=== PATIENT | male | born 1945 | race Caucasian/White ===

== ENCOUNTER 2020-07-24 14:47 | Observation (INO) | payer MEDICARE, SELFPAY ==
[2020-07-24] VITALS (10 sets, daily range): BP systolic 133–173; BP diastolic 67–110; PULSE 67–94; RESP 12–20; TEMP 36.3–36.5; O2SAT 98–100
--- NOTE | ~2020-07-24 | CT_ITS ---
EXAMINATION: CT brain wo con DATE: 07/24/2020 15:50 INDICATION: Syncope TECHNIQUE: Computed tomography (CT) of the head was performed without intravenous contrast. The dose- length product was 605.33 mGy-cm. Automated exposure control and iterative reconstruction technique w ere employed. COMPARISON: None FINDINGS: Mild generalized atrophy. There are scattered severe periventricular and subcortical white matter changes, most likely related to small vessel ischemic disease (microangiopathy). No ventriculo megaly or midline shift. There is intracranial atherosclerosis. No ventriculomegaly or midline shift. Paranasal sinuses and mastoids are pneumatized. No depressed skull fractures. No acute intracranial hemorrhage, infarction, mass or mass effect. IMPRESSION: 1. No acute intracranial abnormality. 2: Chronic age-related findings. Reviewed, dictated and finalized at location A.
--- NOTE | ~2020-07-24 | US_ITS ---
EXAMINATION: US carotid duplex BI DATE: 07/25/2020 11:34 INDICATION: Syncope. TECHNIQUE: Grayscale, color Doppler, and pulsed Doppler images of the cervical carotid arteries were obtained. The degree of vessel stenosis is placed in one of the following categories: normal, <50%, 5 0-69%, >=70% but less than near-occlusion, near-occlusion, or total occlusion. Note that percent sten osis relative to normal distal artery lumen diameter is indirectly measured from velocity measurement s as described by Alex, et al. Radiology 2003; 229:[id number]. COMPARISON: None. FINDINGS: RIGHT: The right common carotid artery (CCA) peak systolic velocity (PSV) is 74 cm/s. The right internal car otid artery (ICA) PSV is 95 cm/s. The right ICA end-diastolic velocity (EDV) is 21 cm/s. The right IC A/CCA PSV ratio is 1.3. Grayscale and color Doppler images yield an estimate of <50% diameter reducti on from plaque in the ICA. There is antegrade flow in the right vertebral artery. LEFT: The left CCA PSV is 118 cm/s. The left ICA PSV is 103 cm/s. The left ICA EDV is 34 cm/s. The left ICA /CCA PSV ratio is 0.9. Grayscale and color Doppler images yield an estimate of <50% diameter reductio n from plaque in the ICA. There is antegrade flow in the left vertebral artery. IMPRESSION: 1. <50% stenosis in the right internal carotid artery. 2. <50% stenosis in the left internal carotid artery. Reviewed, dictated and finalized at location A.
--- NOTE | 2020-07-24 14:56 | ECG_ITS ---
Measurements Intervals [place] Rate: 80 P: -30 AL: 152 QRS: -85 QRSD: 143 T: 61 QT: 422 QTc: 489 Interpretive Statements SINUS RHYTHM RIGHT BUNDLE BRANCH BLOCK LEFT ANTERIOR FASCICULAR BLOCK CANNOT RULE OUT SEPTAL INFARCT, AGE INDETERMINATE BASELINE WANDER- AVL, V4 ABNORMAL ECG Electronically Signed On 07-24-2020 15:11:50 CDT by Mathieu Soares D.O.
--- NOTE | 2020-07-24 15:29 | ED.SYNCOPE ---
HPI - Syncope General Chief Complaint: Syncope Stated Complaint: UNRESPONSIVE EPISODE Time Seen by Provider: 07/24/20 15:01 Source: patient Mode of arrival: ambulatory Limitations: no limitations History of Present Illness HPI narrative: Patient is a 75-year-old male brought in by EMS after having an unresponsive episode while at [address]. According to the patient had a sudden onset of generalized weakness and became unresponsive, described as he was awake but he was not talking or responding for a few minutes. Upon arrival to the emergency room symptoms resolved. Patient states that he feels good and has no complaints at this time. Patient denies any symptoms prior to the episode. Patient denies any headache, dizziness, speech or visual disturbance, focal weakness or numbness, chest pain, shortness of breath abdominal pain, nausea, vomiting, diarrhea, fever or chills. Related Data Home Medications Medication Instructions Recorded Confirmed ferrous sulfate 325 mg (65 mg 325 mg PO DAILY 01/22/20 01/22/20 iron) tablet oxycodone-acetaminophen 5 mg-325 1 tablet PO Q6H PRN 01/22/20 01/22/20 mg tablet Allergies Allergy/AdvReac Type Severity Reaction Status Date / Time No Known Allergies Allergy Unverified 01/22/20 09:13 Review of Systems Review of Systems: All systems reviewed & are unremarkable except as noted in HPI and below Constitutional: Constitutional: Denies body ache(s), Denies chills, Denies excessive sweating, Denies fatigue, Denies fever(s), Denies headache(s), Denies lethargy, Denies malaise, Denies weakness and Denies weight loss Eyes: Eyes: Denies blurry vision, Denies change in vision and Denies loss of vision ENT: Denies dizziness, Denies ear discharge, Denies headache(s), Denies lip swelling, Denies epistaxis, Denies nasal congestion, Denies neck pain, Denies throat swelling and Denies tongue swelling Cardiovascular: Cardiovascular: Denies chest pain, Denies chest pain at rest, Denies chest pain with activity, Denies diaphoresis, Denies rapid heart rate, Denies edema, Denies irregular heart rhythm, Denies lightheadedness, Denies palpitations, Denies dyspnea and Denies dyspnea on exertion Respiratory: Respiratory: Denies chest congestion, Denies cough, Denies hemoptysis, Denies dyspnea and Denies dyspnea on exertion Gastrointestinal: Gastrointestinal: Denies abdominal pain, Denies melena, Denies hematochezia, Denies diarrhea, Denies nausea, Denies vomiting and Denies hematemesis Musculoskeletal: Musculoskeletal: Denies abnormal gait, Denies deformity, Denies joint swelling, Denies limited range of motion, Denies neck pain and Denies numbness Neurologic: Denies Abnormal speech present, Denies abnormal gait, Denies confusion, Denies dizziness, Denies headache(s), Denies focal weakness, Denies loss of vision, Denies numbness, Denies Other visual disturbances, Denies Sensory deficit (Neuro) and Denies weakness Psychiatric: Psychiatric: Denies confusion, Denies depression, Denies auditory hallucinations, Denies homicidal ideation and Denies suicidal ideation Endocrine: Endocrine: Denies cold intolerance, Denies excessive sweating, Denies fatigue, Denies heat intolerance and Denies palpitations Hematologic/Lymphatic: Hematologic/Lymphatic: Denies easy bleeding and Denies easy bruising Allergic/Immunologic: Allergic/Immunologic: Denies lip swelling, Denies throat swelling and Denies tongue swelling PMFSH Past Medical History Medical History Diabetes Surgical History Surgical History History of gastric bypass (~2011) History of open heart surgery (~11/2015) History of repair of right rotator cuff Social History Social History Smoking status: Never smoker Alcohol intake: never Gender identity (if verbalized by the patient):
[2020-07-24 16:11] LABS: Basophils Absolute Auto 0.1 K/mm3 (0.0-0.1); Basophils Percent Auto 0.5 % (0.2-1.2); Eosinophils Absolute Auto 0.1 K/mm3 (0-0.3); Eosinophils Percent Auto 0.5 % (0-4.4); Hematocrit 36.4 % (42.0-52.0); Hemoglobin 10.9 g/dL (14.0-18.0); Immature Granulocyte Absolute 0.05 K/mm3 (0.00-0.031); Immature Granulocyte Percent A 0.5 % (0-0.5); Lymphocytes Absolute Auto 0.82 K/mm3 (0.9-3.2); Mean Corpuscular HGB Conc 29.9 g/dl (32-36); Mean Corpuscular Hemoglobin 25.6 pg (26-34); Mean Corpuscular Volume 85.6 fl (80-100); Mean Platelet Volume 9.5 fl (7.4-10.4); Monocytes Absolute Auto 0.6 K/mm3 (0.1-0.6); Monocytes Percent Auto 5.4 % (2.6-8.5); Neutrophils Absolute Auto 8.8 K/mm3 (1.3-6.7); Neutrophils Percent Auto 85.1 % (45.5-73.1); Platelet Count Result 244 k/mm3 (150-375); Red Blood Count 4.25 M/mm3 (4.6-6.20); Red Cell Distribution Width 17.2 % (11.5-14.5); White Blood Count 10.3 K/mm3 (4.5-10.0)
--- NOTE | 2020-07-24 16:15 | PC.NURSE ---
Approx 900ml of IVFs given in ED.
[2020-07-24 16:20] LABS: Anion Gap 5 mmol/L (8-16); Blood Urea Nitrogen 28 mg/dL (9-20); Calcium 8.4 mg/dL (8.4-10.2); Carbon Dioxide 27 mmol/L (22-30); Chloride 109 mmol/L (98-107); Estimated CRCL calculation 52 ml/min; Estimated Glomerular Filt Rate 49; Glucose 167 mg/dL (75-110); Potassium 5.7 mmol/L (3.4-5.0); Sodium 141 mmol/L (137-145)
[2020-07-24 16:24] LABS: Platelet Estimate Adequate (Adequate)
[2020-07-24 16:25] LABS: Anisocytosis 2+ (NORMAL); Hypochromasia 1+ (NORMAL)
[2020-07-24 16:32] LABS: Troponin I < 0.012 ng/mL (0.000-0.034)
--- NOTE | 2020-07-24 17:15 | PM.IMHP ---
H&P: HPI History of Present Illness Date/Time: 07/24/20 17:45 Chief Complaint: Syncope. Narrative: This is a pleasant 75-year-old male status post 2 vessel bypass and aortic valve replacement in 2015, chronic anemia, untreated obstructive sleep apnea, type 2 diabetes mellitus no longer on medication after significant weight loss, and peripheral neuropathy who presented to the emergency department earlier today via EMS from [place] local shopping [place] for evaluation after a syncopal episode. The patient begins his story by saying that he has felt ?like my tank has run out of gas? since his bypass and valve replacement in November 2015 although he has some days where he feels good with a lot of energy but most days he feels tired and worn out. Over the past several days his has noticed that he seems more fatigued than usual, and in fact she thinks he has been stumbling somewhat when walking. Today they went out and about running errands and at several the stores his noticed that he ?seem to be walking slow and was almost dragging himself along the cart due to fatigue.? At their final destination he decided to stay in the car as he was so worn out. When the returned to the car he got out and helped her load water bottles into the trunk. At that time he began to feel extremely weak and lightheaded but was unable to make it back into the car. He slumped down onto the ground where he sat for a few seconds before his head fell forward and he became unresponsive for several minutes. A registered nurse was nearby and she reported to EMS on their arrival that the patient had a thready pulse and was with shallow respirations. I do not believe that his glucose was checked at the scene. He came to in the ambulance and he has been alert and oriented since that time. There was no mention of seizure-like activity. Vital signs have been stable in the emergency department and in fact his blood pressures have been running a bit high although he seems a bit anxious. He thinks he has been eating and drinking as per usual however his does not think he stays hydrated enough, telling me that he spent 4 to 5 hours outside yesterday afternoon on a riding lawnmower without 1 drink of water. He has had gastric bypass surgery and his stomach only holds a small amount thus he did not drink much after being outside all day. He denies chest pain, pleuritic pain, shortness of breath, and palpitations. No orthopnea, PND, or lower extremity edema. However does note that he has been unable to use his CPAP for years and she frequently witnesses apneic episodes. He denies nausea, vomiting, and sweats. No recent change in medications. He denies focal weakness. No acute auditory or visual changes. No vertigo. Review of Systems Review of Systems: Narrative: Twelve systems were reviewed with pertinent positives and negatives as per HPI. No fever, chills, or sweats. He denies recent cold and flu symptoms. No exposure to those positive for COVID-19. He lost about 150 pounds after his gastric bypass nearly a decade ago. If he eats too much he will vomit. He denies nausea and recent vomiting. No diarrhea or constipation. No significant GERD symptoms. He denies blood in the stools. He is prescribed oxycodone for severe neuropathy in his legs and feet but he does not take that daily. He denies NSAID use. No dysuria. He has not noticed a decrease in urine output. No known history of kidney disease. He has not had any recent change in medications. Currently having issues with his left shoulder related to rotator cuff repair, followed by Dr. Rosales. Except as documented, all other systems were reviewed and are negative. [facility] Past Medical History Medical History (Updated 07/24/20 @ 21:51 by Basilia Mcfarland PA-C) Coronary artery disease History of 2 vessel bypass at the time of aortic valve replacement in 2016 at [facility]. Iron deficiency anemia Started
[2020-07-24] MEDS: SODIUM POLYSTYRENE SULFONONATE 15 GM/60 ML BTL PO (18:30)
[2020-07-24 18:33] LABS: Glucose Point of Care 124 mg/dl (65-105)
[2020-07-24] MEDS: LACTATED RINGERS 1,000 ML 999 ML IV CONT ×2 (18:42)
--- NOTE | 2020-07-24 21:11 | ADMGEN ---
This patient, Khang Barber, was admitted to Medical Room [facility]- at 2020. Patient/family oriented to hospital policies and general routines including ID bracelet, bed and alarms, visiting hours, pain management, procedures, bathroom and other care routines, personal items, smoking policy, room service/diet, and visiting hours. Information on how to activate the Rapid Response Team has been discussed. Patient/Family are encouraged to report perceived risks to care and to ask questions if they do not understand what they are told or what they should do.
[2020-07-24 21:13] LABS: Anion Gap 6 mmol/L (8-16); Blood Urea Nitrogen 31 mg/dL (9-20); Calcium 8.2 mg/dL (8.4-10.2); Carbon Dioxide 27 mmol/L (22-30); Chloride 108 mmol/L (98-107); Estimated CRCL calculation 55 ml/min; Estimated Glomerular Filt Rate 54; Glucose 127 mg/dL (75-110); Potassium 4.6 mmol/L (3.4-5.0); Sodium 141 mmol/L (137-145)
[2020-07-24 22:18] LABS: Alanine Aminotransferase 13 U/L (4-50); Albumin Level 3.3 g/dL (3.5-5.1); Alkaline Phosphatase 58 U/L (38-126); Aspartate Amino Transferase 22 U/L (17-59); Bilirubin,Total 0.5 mg/dL (0.2-1.3); Creatine Kinase 80 U/L (55-170); Magnesium 1.8 mg/dL (1.6-2.3)
[2020-07-24] MEDS: oxyCODONE/ACETAMINOPHEN (*CRX) 5-325 MG TABLET 1 TABLET PO (22:36)
[2020-07-24] MEDS: oxyCODONE HCL (*CRX) 2.5 MG TAB IR PO (22:36)
[2020-07-25] VITALS (10 sets, daily range): BP systolic 132–164; BP diastolic 60–78; PULSE 68–85; RESP 16–18; TEMP 36.2–36.6; O2SAT 94–100
[2020-07-25 06:28] LABS: Alanine Aminotransferase 11 U/L (4-50); Albumin Level 3.2 g/dL (3.5-5.1); Alkaline Phosphatase 58 U/L (38-126); Anion Gap 8 mmol/L (8-16); Aspartate Amino Transferase 18 U/L (17-59); Bilirubin,Total 0.5 mg/dL (0.2-1.3); Blood Urea Nitrogen 32 mg/dL (9-20); Calcium 8.3 mg/dL (8.4-10.2); Carbon Dioxide 23 mmol/L (22-30); Chloride 110 mmol/L (98-107); Creatine Kinase 80 U/L (55-170); Estimated CRCL calculation 60 ml/min; Estimated Glomerular Filt Rate 59; Glucose 102 mg/dL (75-110); Magnesium 1.8 mg/dL (1.6-2.3); Potassium 4.2 mmol/L (3.4-5.0); Sodium 141 mmol/L (137-145)
[2020-07-25 06:31] LABS: Hemoglobin A1C 6.2 % (<5.7)
[2020-07-25 06:34] LABS: Hematocrit 41.5 % (42.0-52.0); Hemoglobin 12.4 g/dL (14.0-18.0); Mean Corpuscular HGB Conc 29.9 g/dl (32-36); Mean Corpuscular Hemoglobin 26.3 pg (26-34); Mean Corpuscular Volume 88.1 fl (80-100); Mean Platelet Volume 10.3 fl (7.4-10.4); Platelet Count Result 159 k/mm3 (150-375); Red Blood Count 4.71 M/mm3 (4.6-6.20); Red Cell Distribution Width 17.4 % (11.5-14.5); White Blood Count 4.4 K/mm3 (4.5-10.0)
--- NOTE | 2020-07-25 08:22 | PM.IMPN ---
Progress Note: A&P Assessment and Plan (1) Weakness: Code(s): R53.1 - Weakness Status: Acute Assessment and Plan: Probably related to dehydration give IV fluid (2) Anemia: Code(s): D64.9 - Anemia, unspecified Status: Acute Assessment and Plan: Check occult blood transfuse if hemoglobin below 7 (3) Syncope: Code(s): R55 - Syncope and collapse Status: Acute Assessment and Plan: Multifactorial probably related to dehydration rule out seizure rule out arrhythmia (4) Peripheral neuropathy: Code(s): G62.9 - Polyneuropathy, unspecified Status: Acute Assessment and Plan: Continue home medication (5) Coronary artery disease: Code(s): I25.10 - Atherosclerotic heart disease of [place] coronary artery without angina pectoris Status: Acute Assessment and Plan: Patient has abnormal EKG denies chest pain pending echo (6) Iron deficiency anemia: Code(s): D50.9 - Iron deficiency anemia, unspecified Status: Acute Assessment and Plan: As above (7) Type 2 diabetes mellitus: Code(s): E11.9 - Type 2 diabetes mellitus without complications Status: Acute Additional Plan Insulin sliding scale Subjective Date/time seen: 07/25/20 08:22 Interval history: Patient seen and examined Patient feels weak Patient presented to the hospital with generalized weakness syncope Currently being treated for dehydration EKG is abnormal pending echo and carotid Doppler Patient denies fever headache chest pain shortness of breath I am seeing the patient for syncope Exam Narrative: Exam Narrative: Alert Chest no wheeze crackles Abdomen nontender nondistended CVS S1 + S2 Lower extremity edema Objective Data Vital Signs Vital Signs: Vital Signs - 24 hr 07/24/20 15:08 07/24/20 15:11 07/24/20 16:55 Temperature 97.7 F Pulse Rate 72 81 67 Respiratory Rate 14 17 Blood Pressure 148/86 H 141/72 H Pulse Oximetry 99 100 07/24/20 17:57 07/24/20 18:48 07/24/20 18:51 Temperature Pulse Rate 74 86 89 Respiratory Rate 12 Blood Pressure 166/87 H 170/87 H 173/91 H Pulse Oximetry 98 07/24/20 18:52 07/24/20 19:05 07/24/20 20:20 Temperature Pulse Rate 94 80 78 Respiratory Rate 17 Blood Pressure 157/110 H 133/82 Pulse Oximetry 99 07/24/20 22:00 07/25/20 00:00 07/25/20 04:00 Temperature 97.4 F L Pulse Rate 79 85 72 Respiratory Rate 20 Blood Pressure 151/67 H Pulse Oximetry 99 07/25/20 06:00 Temperature 97.9 F Pulse Rate 81 Respiratory Rate 18 Blood Pressure 132/78 Pulse Oximetry 100 Intake/Output Intake/Output: Intake & Output 07/22/20 07/23/20 07/24/20 07/25/20 23:59 23:59 23:59 23:59 Intake Total 1999 Output Total 1020 Balance 1999 - Meds/Results Medications: Active Medications Generic Name Dose Route Start Last Admin Trade Name Freq PRN Reason Stop Dose Admin Ferrous Sulfate 324 mg 07/25/20 08:00 Ferrous Sulfate 324 Mg Tablet PO BIDWM LUIS Oxycodone HCl 2.5 mg 07/24/20 22:37 Oxycodone Hcl (*Crx) 2.5 Mg Tab Ir PO Q6HR PRN Pain Rated 7-10 Oxycodone/Acetaminophen 1 tablet 07/24/20 22:37 Oxycodone/Acetaminophen (*Crx) 5-325 Mg Tablet PO Q6HR PRN Pain Rated 7-10 Radiology Results: ITS Impressions Head CT 07/24/20 15:51 IMPRESSION: 1. No acute intracranial abnormality. 2: Chronic age-related findings. Labs Labs: Laboratory Results - last 24 hr 07/24/20 07/24/20 07/24/20 16:02 16:02 16:02 WBC 10.3 H RBC 4.25 L Hgb 10.9 L Hct 36.4 L MCV 85.6 MCH 25.6 L MCHC 29.9 L RDW 17.2 H Plt Count 244 MPV 9.5 Immature Gran % (Auto) 0.5 Neut % (Auto) 85.1 H Lymph % (Auto) 8.0 L [place] % (Auto) 5.4 Eos % (Auto) 0.5 Baso % (Auto) 0.5 Lymph # (Auto) 0.82 L [place] # (Auto) 0.6 Eos # (Auto) 0.1 Baso # (Auto) 0.1 Abs Immat Gran (
[2020-07-25] MEDS: FERROUS SULFATE 324 MG TABLET PO ×2 (08:50→16:46)
[2020-07-25] MEDS: oxyCODONE/ACETAMINOPHEN (*CRX) 5-325 MG TABLET 1 TABLET PO ×2 (13:04→21:12)
[2020-07-25] MEDS: oxyCODONE HCL (*CRX) 2.5 MG TAB IR PO ×2 (13:12→21:13)
--- NOTE | 2020-07-25 21:58 | ECHO_ITS ---
Patient Info Name: Khang Barber Age: 75 years : 1945 Gender: Male Ht: 77 in Wt: 222 lbs BSA: 2.35 m2 HR: 76 bpm BP: 151 / 67 mmHg Heart Rhythm: Sinus Rhythm Technical Quality: Fair Exam Date: 07/25/2020 7:52 AM Exam Location: [facility] Pulmonary Patient Status: Inpatient Admit Date: 07/24/2020 Staff Ordering Physician: Basilia Mcfarland PA-C Drilling Machine Operator: Love Miller RDCS Attending Provider: Antoinette Marte M.A., MD Referring Physician: Bruna CERVANTES; Exam Type: CA echo dop color flow w con Study Info Complete two-dimensional, color flow and Doppler transthoracic echocardiogram is performed with contrast to opacify the left ventricle and to improve the deliniation of the left ventricle endocardial borders. Contrast/Agitated Saline Contrast/Ag. Saline: Definity Amount: 4.00 ml Summary 1. Normal LV size, severe LVH, normal LV systolic function, ejection fraction 60-65%; grade 1 diastolic dysfunction. Apical inferior segment appears mildly hypokinetic. Mild left atrial enlargement. Mitral valve leaflets mildly thickened, no significant MR. Aortic valve sclerosis, mild aortic stenosis; peak velocity 2.3 m/sec, mean gradient 10 mmHg. Calculated DON 2.3 cm2. Trivial TR, RVSP 26 mmHg. Sinus rhythm. Left Ventricle Left ventricular chamber dimension is normal. Left ventricular systolic function is normal, estimated at 60-65%. There is severely increased left ventricular wall thickness. The left ventricular diastolic function is grade I diastolic dysfunction. Right Ventricle Right ventricular chamber dimension is normal. Right ventricular systolic function is normal. Left Atria Left atrial chamber dimension is mildly enlarged. Right Atria Right atrial chamber dimension is normal. Aortic Valve There is mild aortic valve sclerosis. Pulmonic Valve The pulmonic valve is normal. There is trace pulmonic regurgitation. Mitral Valve The mitral valve has thickened leaflets. There is no mitral valve regurgitation. Tricuspid Valve The tricuspid valve leaflets are normal. There is trace tricuspid valve regurgitation. Pericardium/Pleural The pericardium appears normal. Aorta The aortic root size at the sinus of Valsalva is normal. Left Ventricular Outflow Tract Name Value Normal LVOT 2D LVOT Diameter 2.32 cm LVOT Doppler LVOT Peak Gradient 7 mmHg LVOT Mean Gradient 4 mmHg LVOT VTI 30.27 cm LVOT VTI/AV VTI Ratio 0.56 LVOT Stroke Volume 127.43 ml LVOT CO 9.37 l/min LVOT CI 3.99 L/min/m2 Pulmonic Valve Name Value Normal PV Doppler PV Peak Gradient 6 mmHg Mitral Valv
[2020-07-26] VITALS: PULSE 99
[2020-07-26] MEDS: oxyCODONE/ACETAMINOPHEN (*CRX) 5-325 MG TABLET 1 TABLET PO (03:54)
[2020-07-26] MEDS: oxyCODONE HCL (*CRX) 2.5 MG TAB IR PO (03:54)
[2020-07-26 04:00] VITALS: PULSE 67
[2020-07-26 06:00] VITALS: BP 159/82; PULSE 75; RESP 18; TEMP 36.3; O2SAT 100
[2020-07-26] MEDS: FERROUS SULFATE 324 MG TABLET PO (07:42)
[2020-07-26 08:00] VITALS: PULSE 67
--- NOTE | 2020-07-26 08:29 | P.DS_ITS ---
DS: Admitting Diagnosis Admitting Diagnosis Admitting Diagnosis: Syncope DS: Discharge Diagnosis Discharge Diagnosis (1) Weakness: Code(s): R53.1 - Weakness Status: Acute Assessment and Plan: Probably related to dehydration acute renal failure treated with IV hydration follow-up with nephrology as outpatient follow-up with PCP as outpatient repeat CMP in 1 week r (2) Anemia: Code(s): D64.9 - Anemia, unspecified Status: Acute Assessment and Plan: Full workup as outpatient follow-up with PCP (3) Syncope: Code(s): R55 - Syncope and collapse Status: Acute Assessment and Plan: Multifactorial probably related to dehydration ruled out seizure ruled out arrhythmia patient has acute renal failure treated with IV hydration (4) Peripheral neuropathy: Code(s): G62.9 - Polyneuropathy, unspecified Status: Acute Assessment and Plan: Continue home medication (5) Coronary artery disease: Code(s): I25.10 - Atherosclerotic heart disease of [place] coronary artery without angina pectoris Status: Acute Assessment and Plan: Patient is not on aspirin follow-up with PCP as outpatient DS: Summary Hospital Course Hospital Course: Patient was admitted to the hospital generalized weakness syncopal episode was found to have acute renal failure patient also has mild hyperkalemia probably related to renal failure twice treated with IV hydration patient has anemia need workup as outpatient follow-up with PCP Time Spent with Patient Time attestation: Total time spent providing and/or coordinating discharge services: Exam Narrative: Exam Narrative: Alert Chest no wheeze crackles Abdomen nontender nondistended CVS S1 + S2 Lower extremity edema Discharge Plan Discharge Attending physician on discharge: Antoinette Marte M.A. Discharging Clinician: Antoinette Marte M.A. Patient Disposition: Home, Self-Care Activity: other - see discharge instructions Diet: heart healthy Patient Instructions: Antibiotic Form, How to Stop Smoking (DC) Stand Alone Forms: General Discharge Information Follow-up/Referrals: Fran,Juan Pablo Sewell M.D. [Primary Care Provider] - Discharge Medications: Continued ferrous sulfate 325 mg (65 mg iron) tablet 325 mg PO BID RF: 0 atorvastatin 40 mg Tablet 40 mg PO DAILY RF: 0 oxycodone-acetaminophen [Percocet] 7.5-325 mg tablet 1 tablet PO Q6H RF: 0 Date of admission: 07/24/20 18:33 Primary Care Provider: Fran,Juan Pablo Sewell Admitting Provider: Antointete Marte M.A. Attending physician on admission: Antoinette Marte M.A. Condition: Improved Quality VTE Prophylaxis VTE prophylaxis: mechanical ordered
== END 2020-07-26 09:22 | disposition home or self-care (01) ==
LOC: ANHED 18:00 → ANH2MED 19:11
PROVIDERS: Physician Assistant; Admitting Provider Internal Medicine; Emergency Provider Emergency Medicine; PCP Family Medicine; Visit Provider Internal Medicine
DX: R53.1 Weakness (principal); D50.9 Iron deficiency anemia, unspecified; R55 Syncope and collapse; E87.5 Hyperkalemia; E11.42 Type 2 diabetes mellitus with diabetic polyneuropathy; N19 Unspecified kidney failure; R03.0 Elevated blood-pressure reading, without diagnosis of hypertension; I25.10 Atherosclerotic heart disease of native coronary artery without angina pectoris; G47.33 Obstructive sleep apnea (adult) (pediatric); I35.8 Other nonrheumatic aortic valve disorders; F17.220 Nicotine dependence, chewing tobacco, uncomplicated; Z79.891 Long term (current) use of opiate analgesic; Z95.1 Presence of aortocoronary bypass graft; Z98.84 Bariatric surgery status; Z95.2 Presence of prosthetic heart valve
CPT/HCPCS: 36415; 70450; 80048; 80053; 80076; 82550; 82948; 83036; 83735; 84443; 84484; 85025; 85027; 93005; 93880; 96360; 96361; 99285; A9270; C8929; G0378; J7120; Q9957

== ENCOUNTER 2021-12-03 01:10 | Day surgery (SDC) | payer MEDICARE, SELFPAY ==
[2021-12-02 14:52] VITALS: BMI 25.5
--- NOTE | 2021-12-03 10:25 | WPDHPUPDATE1 ---
History and Physical Update Update Date/Time: 12/03/21 10:25 History and Physical has been reviewed, including an updated exam of the patient. There are NO changes in the patient's condition. Risks, benefits, and alternatives have been discussed and questions answered. Patient agrees to proceed with procedure.
[2021-12-03 10:43] VITALS: BP 184/96; PULSE 74; RESP 18; TEMP 36.5; O2SAT 100
[2021-12-03] MEDS: LACTATED RINGERS 1,000 ML 150 ML IV CONT (10:56)
[2021-12-03] MEDS: GENTAMICIN 80MG/SOD CHL 50 ML 80 MG/50 ML BAG 100 MG IVPB (10:57)
[2021-12-03] MEDS: AMPICILLIN 2 GM/NS 100 ML 2 GM/100 ML BAG IVPB (10:57)
--- NOTE | 2021-12-03 11:02 | WPDANESEPPF ---
Anes - Initial Pre Proc Eval Procedure: Operation Date: 12/03/21 11:30 Proposed Procedures p Esophagogastroduodenoscopy EGD - Keron Bermoe MD Date/Time: 12/03/21 11:02 Surgeon: Keron Bermeo MD Pre Op Diagnosis: GERD Patient Data Age: 76 Gender: M Height: 1.96 m Weight: 91.1 kg Last Vital Signs Temp 97.7 F 12/03/21 10:43 Pulse 74 12/03/21 10:43 Resp 18 12/03/21 10:43 BP 184/96 H 12/03/21 10:43 Pulse Ox 100 12/03/21 10:43 O2 Del Method Room Air 12/03/21 10:43 Allergies Allergy/AdvReac Type Severity Reaction Status Date / Time No Known Allergies Allergy Verified 12/03/21 10:39 Home Medications Medication Instructions Recorded Confirmed Type atorvastatin 40 mg tablet 40 mg PO DAILY 07/24/20 12/03/21 History oxycodone-acetaminophen 7.5 mg-325 1 tablet PO Q6H PRN neuropathy 07/24/20 12/03/21 History mg tablet (Percocet) omeprazole 40 mg capsule,delayed 40 mg PO BID 12/01/21 12/03/21 History release promethazine 25 mg tablet 25 mg PO Q6H PRN Nausea 12/01/21 12/03/21 History Patient hx anesthesia problems: none Family hx anesthesia problems: none Results Review: All pre-operative results and documents have been reviewed as part of the pre-operative evaluation. [facility] Past Medical History Medical History Coronary artery disease History of 2 vessel bypass at the time of aortic valve replacement in 2015 at [facility]. Iron deficiency anemia Started on iron in spring 2020. Etiology unclear, no workup has yet been pursued. Obstructive sleep apnea Patient states intolerance to CPAP. Peripheral neuropathy On oxycodone p.r.n. Type 2 diabetes mellitus No longer on medication after losing over 150 pounds. Surgical History Surgical History (Updated 12/01/21 @ 10:42 by Keron Bermeo MD) History of aortic valve replacement with bioprosthetic valve (11/2015) Performed at [facility]. History of coronary artery bypass graft x 2 (11/2015) Performed at [facility]. History of gastric bypass (2011) History of open heart surgery (~11/2015) History of repair of right rotator cuff Family History Family History Mother Acute myocardial infarction Father Cerebrovascular accident Grandparent Leukemia Social History Social History Social History: The patient is and lives with his in [place]. They have 3 grown daughters. He is retired from the [employer]. Smoked 1.5 packs of cigarettes per day for many years and quit about 30 years ago. He continues to chew tobacco. No alcohol or illicit substance abuse. He designates his , Aretha, as his surrogate decision maker and he wishes to be a do not resuscitate. Smoking packs per day: 1 Smoking cigarettes per day: 20.0 Years smoked: 15 Smoking pack-years: 15.00 Smoking status: Former smoker Tobacco type: cigarettes Smokeless tobacco user: chewing tobacco Alcohol intake: never Substance use: never Substance use type: does not use Living arrangements: with family Spiritual care concerns: No Anes - Eval Final PreProcedure Day of Procedure 12/03/21 11:02 Patient weight: normal Heart: regular rate and rhythm Lungs: clear to auscultation Airway: Mallampati scale class II Neurological: alert and oriented Last oral intake: >/= 8 hours ASA classification: III Emergent: no Anesthetic plan: proceed Anesthesia type and monitoring: general GIVS and standard monitoring Results Review: All pre-operative results and documents have been reviewed as part of the pre-operative evaluation. Informed Consent: The patient's anesthetic plan and its attendant risks and benefits were discussed with the patient/family/POA. Questions were solicited and answers provided to the satisfact
[2021-12-03] MEDS: BENZOCAINE (*SP) 60 ML SPRAY CAN (HURRICAINE) 1 SPRAY MUCOUS MEM (11:08)
[2021-12-03 11:25] VITALS: BP 143/75; PULSE 63; RESP 18; O2SAT 100
[2021-12-03 11:35] VITALS: BP 149/80; PULSE 64; RESP 19; O2SAT 100
[2021-12-03 11:45] VITALS: BP 175/88; PULSE 70; RESP 20; O2SAT 100
== END 2021-12-03 12:03 | disposition home or self-care (01) ==
PROVIDERS: PCP Family Medicine; Visit Provider Internal Medicine Gastroenterology
PROC: 0DJ08ZZ Inspection of Upper Intestinal Tract, Via Natural or Artificial Opening Endoscopic (ICD-10-PCS; CPT 43235; principal; 2021-12-03 11:30)
DX: K21.9 Gastro-esophageal reflux disease without esophagitis (principal); K31.2 Hourglass stricture and stenosis of stomach; Z98.84 Bariatric surgery status; D64.9 Anemia, unspecified; Z87.11 Personal history of peptic ulcer disease; I25.10 Atherosclerotic heart disease of native coronary artery without angina pectoris; D50.9 Iron deficiency anemia, unspecified; G47.33 Obstructive sleep apnea (adult) (pediatric); R11.2 Nausea with vomiting, unspecified; E11.9 Type 2 diabetes mellitus without complications; G62.9 Polyneuropathy, unspecified; Z95.1 Presence of aortocoronary bypass graft; F17.210 Nicotine dependence, cigarettes, uncomplicated; Z95.3 Presence of xenogenic heart valve
CPT/HCPCS: 43245; C1726; J0290; J1580; J2704; J7120

== ENCOUNTER 2022-04-22 12:16 | Inpatient (IN) | payer MEDICARE, SELFPAY ==
[2022-04-22] VITALS (47 sets, daily range): BP systolic 130–174; BP diastolic 60–103; PULSE 79–116; RESP 15–29; TEMP 37.4–38.6; O2SAT 98–100; BMI 23.7
--- NOTE | ~2022-04-22 | MR_ITS ---
EXAMINATION: MR lumbar spine wo con DATE: 04/24/2022 10:58 INDICATION: Lower extremity weakness. TECHNIQUE: Magnetic resonance imaging (MRI) of the lumbar spine was performed without intravenous con trast. Sequences included sagittal T2-weighted FSE, sagittal T2-weighted FS FSE, sagittal T1-weighted FSE, and axial T2-weighted FSE. COMPARISON: None FINDINGS: There is 3 mm retrolisthesis of T12 on L1 and L1 and L2 and 3 mm anterolisthesis of L4 on L 5 and L5 on S1. There is mild chronic anterior wedging of T11 and T12 vertebral bodies. There are hem angiomas in T11 and T12 vertebral bodies. There is mildly decreased disc height at T12-L1, L3-L4, and L5-S1. The distal spinal cord signal intensity is normal. The conus medullaris is at T12-L1. The fol lowing disc levels are specifically discussed: T12-L1: The disc is bulging. There is mild bilateral facet joint osteoarthritis. There is mild bilate ral neural foraminal stenosis. There is mild central canal stenosis. L1-L2: The disc is bulging. There is mild bilateral facet joint osteoarthritis. There is mild bilater al neural foraminal stenosis. There is mild central canal stenosis. L2-L3: The disc is bulging. There is mild right and moderate left facet joint osteoarthritis. There i s mild bilateral neural foraminal stenosis. There is no central canal stenosis. L3-L4: The disc is bulging. There is mild bilateral facet joint osteoarthritis. There is mild bilater al neural foraminal stenosis. There is mild central canal stenosis. L4-L5: The disc is bulging. There is severe bilateral facet joint osteoarthritis. There is mild right and moderate left neural foraminal stenosis. There is no central canal stenosis. L5-S1: The disc is bulging and has an annular fissure. There is moderate and severe left facet joint osteoarthritis. There is mild bilateral neural foraminal stenosis. There is no central canal stenosis . IMPRESSION: 1. Moderate left neural foraminal stenosis at L4-L5. Otherwise mild lumbar spondylosis. Reviewed, dictated and finalized at location E. DRIVER OPERATOR BARGE MOUNTED IMPRESSION: 1. Moderate left neural foraminal stenosis at L4-L5. Otherwise mild lumbar spon dylosis.
--- NOTE | ~2022-04-22 | MR_ITS ---
EXAMINATION: MR brain/brain stem wo con DATE: 04/24/2022 10:58 INDICATION: Altered mental status. TECHNIQUE: Magnetic resonance imaging (MRI) of the brain and brainstem was performed without intraven ous contrast. COMPARISON: Head CT 04/22/2022 FINDINGS: There are scattered acute infarcts involving the bilateral frontal, parietal, temporal, and occipital lobes, bilateral basal ganglia, and bilateral cerebellum. There are scattered areas of non specific increased T2-weighted signal intensity in the cerebral white matter and xiomy. There are old infarcts involving the bilateral frontal and parietal lobes. There are foci of old blood products in the cerebellum bilaterally. There is no abnormal mass lesion. There are old infarcts involving the bi lateral basal ganglia, xiomy, and left thalamus. The ventricles are normal in size. There are likely c hanges of ocular lens replacement surgeries. There is mild mucosal thickening in the ethmoid sinuses. There is a trace left mastoid effusion. IMPRESSION: 1. Scattered acute infarcts in the brain. 2. Scattered chronic infarcts in the brain. 3. Extensive nonspecific cerebral white matter disease and pontine disease, which likely represents c hronic small vessel ischemic disease. Reviewed, dictated and finalized at location E. OGY TEACHER IMPRESSION: 1. Scattered acute infarcts in the brain. 2. Scattered chronic infarcts in the brain. 3. Extensive nonspecific cerebral white matter disease and pontine disease, whi ch likely represents chronic small vessel ischemic disease.
--- NOTE | ~2022-04-22 | US_ITS ---
US abdomen limited DATE: 04/23/2022 09:29 INDICATION: Abdominal pain Distended gallbladder on April 22, 2022 CT abdomen examination TECHNIQUE: Real-time imaging and Doppler analysis of liver, pancreas, gallbladder areas COMPARISON: January 20, 2023 CT abdomen pelvis FINDINGS: No gallstones or gallbladder wall thickening or pericholecystic fluid is noted. Negative so nographic Vasquez's sign. The common bile duct measures 3.8 mm, within normal range. No hepatic space-occupying mass lesion is evident. Normal hepatopedal portal venous flow direction. T he pancreas is obscured by bowel gas. IMPRESSION: Pancreas is obscured; otherwise negative examination Reviewed, dictated and finalized at Location A. Reviewed, dictated and finalized at location A. IX CONCRETE BATCHER
--- NOTE | ~2022-04-22 | XR_ITS ---
EXAMINATION: XR chest 1V DATE: 04/22/2022 16:10 INDICATION: Syncope. TECHNIQUE: A single frontal view of the chest was obtained. COMPARISON: Chest 2 views 12/01/2008 FINDINGS: There is mild atelectasis in the lower lung zones. No pleural effusion or pneumothorax. The heart size is normal. Median sternotomy wires and mediastinal surgical clips are seen, likely from p rior coronary artery bypass grafting. IMPRESSION: 1. Mild atelectasis in the lower lung zones. Reviewed, dictated and finalized at location A. ENGINEER
--- NOTE | ~2022-04-22 | CT_ITS ---
EXAMINATION: CT brain wo con DATE: 04/22/2022 16:08 INDICATION: Confusion. TECHNIQUE: Computed tomography (CT) of the head was performed without intravenous contrast. The mA wa s adjusted according to patient size. Iterative reconstruction technique was employed. The dose-lengt h product was 681.00 mGy-cm. COMPARISON: Head CT 07/24/20 FINDINGS: There are old lacunar infarcts in the bilateral basal ganglia and xiomy. There is a small in farct in left cerebellum. There are scattered areas of low attenuation in the cerebral white matter. There is no intracranial hemorrhage, acute infarction, or abnormal intracranial mass lesion. The vent ricles are normal in size. There are likely changes of ocular lens replacement surgeries. There is mi ld mucosal thickening in the ethmoid sinuses. There is a trace right mastoid effusion. IMPRESSION: 1. Old infarcts in the bilateral basal ganglia, xiomy, and left cerebellum. 2. Stable extensive nonspecific cerebral white matter disease, which likely represents chronic small vessel ischemic disease. Reviewed, dictated and finalized at location A. ICK BOAT LEVERMAN IMPRESSION: 1. Old infarcts in the bilateral basal ganglia, xiomy, and left cerebellum. 2. Stable extensive nonspecific cerebral white matter disease, which likely rep resents chronic small vessel ischemic disease.
--- NOTE | ~2022-04-22 | XR_ITS ---
EXAM: XR foot LT min 3V, XR foot RT min 3V DATE: 04/23/2022 15:23 HISTORY: Bacteremia . COMPARISON: None available. FINDINGS: Decreased mineralization. No fracture or dislocation. No lytic or blastic lesion. Mild deg enerative change at the bilateral midfoot joints and bilateral tibiotalar joints. Moderate left first MTP joint and left first interphalangeal joint. Plantar enthesopathy. Achilles enthesopathy. No eros ion or periosteal change. Bilateral forefoot soft tissue swelling. Question of a right-sided soft tis brennan ulceration over the ball of the right foot. IMPRESSION: No radiographic evidence of osteomyelitis in the feet. Reviewed, dictated and finalized at location K. EED OIL ORDER FILLER IMPRESSION: No radiographic evidence of osteomyelitis in the feet.
--- NOTE | ~2022-04-22 | XR_ITS ---
EXAMINATION: XR chest 1V portable INDICATION: Shortness of breath TECHNIQUE: Portable AP chest at 2148 hours COMPARISON: 05/24/2022 FINDINGS: There is a tiny right apical pneumothorax. A small left pleural effusion is present. There are minimal airspace opacities of the lung bases. Changes of cardiac valve replacement are noted. The re is cardiomegaly. IMPRESSION: 1. Tiny right apical pneumothorax. These findings were discussed with RAFAEL Sanches at 2005 hours on 04/27/2022. 2. Bibasilar airspace opacities, consistent with atelectasis versus pneumonia. 3. Small left pleural effusion. 4. Cardiomegaly. Reviewed, dictated and finalized at location F. CLE MODIFICATION TECHNICIAN
--- NOTE | ~2022-04-22 | XR_ITS ---
XR chest 1V portable INDICATION: Hypoxia TECHNIQUE: 2 view chest. FINDINGS: 04/22/2022 There is mild bilateral interstitial prominence and peribronchial cuffing. There is no focal consoli dation, pleural effusion, or pneumothorax. The cardiomediastinal silhouette is normal. Status post median sternotomy for CABG. IMPRESSION: 1. Findings most consistent with bronchiolitis versus an atypical or viral pneumonia. Reviewed, dictated and finalized at location D. MOTIVE GENERAL MANAGER IMPRESSION: 1. Findings most consistent with bronchiolitis versus an atypical or viral pne junie.
--- NOTE | ~2022-04-22 | CT_ITS ---
EXAMINATION: CT abdomen pelvis w con DATE: 04/22/2022 16:52 INDICATION: Abdominal pain. Weakness. TECHNIQUE: Computed tomography (CT) of the abdomen and pelvis was performed with 100 mL Omnipaque 350 intravenous contrast. Automated exposure control and iterative reconstruction technique were employe d. The dose-length product was 1136.00 mGy-cm. COMPARISON: None. FINDINGS: The visualized portions of the lung bases demonstrate mild atelectasis. There are trace ple ural effusions. The heart size is normal. There are calcifications of the coronary arteries. There ar e changes of aortic valve replacement. No pericardial effusion. The liver is normal. The gallbladder is distended. There are surgical changes of the stomach, likely a gastric bypass procedure. There is a small sliding hiatal hernia. The spleen, pancreas, and adrenal glands are normal. There is cortical thinning of the kidneys. There is a 15 mm cyst in left kidney. The prostate is mildly enlarged. Ther e are no dilated loops of bowel. The appendix is normal. There are no pathologically enlarged lymph n odes. There is no free intraperitoneal fluid. There is calcified atherosclerosis of the aorta and man y of the other arteries. There is mild thoracic spondylosis and moderate lumbar spondylosis. IMPRESSION: 1. Gallbladder distention, which may be secondary to fasting. Correlate with physical exam to exclude acute cholecystitis. Reviewed, dictated and finalized at location A. ACTOR MACHINE OPERATOR IMPRESSION: 1. Gallbladder distention, which may be secondary to fasting. Correlate with ph ysical exam to exclude acute cholecystitis.
--- NOTE | 2022-04-22 12:25 | ECG_ITS ---
Measurements Intervals [place] Rate: 110 P: -52 TX: 119 QRS: -84 QRSD: 150 T: 44 QT: 362 QTc: 491 Interpretive Statements ECTOPIC ATRIAL TACHYCARDIA WITH SHORT TX INTERVAL LEFT ANTERIOR SUPERIOR HEMIBLOCK RIGHT BUNDLE BRANCH BLOCK [120+ ms QRS DURATION, UPRIGHT V1, 40+ ms S IN I/aVL/V4/V5/V6] ABNORMAL ECG COMPARED TO ECG 07/24/2020 15:01:05 NO OBVIOUS CHANGES, CURRENT ECG IS OF POOR QUALITY WITH BASELINE MOTION ARTIFACT Electronically Signed On 04-22-2022 15:37:36 THERMAL SPRAY OPERATOR by Nabil Ramirez M.D.
[2022-04-22 12:26] LABS: Glucose Point of Care 154 mg/dl (65-105)
--- NOTE | 2022-04-22 12:27 | PC.NURSE ---
per , pt became confused, agitated, and agressive last night as well. Pt states that has never happened, but he has been shaking, and weak and was not acting right.
[2022-04-22 14:08] LABS: Glucose Point of Care 144 mg/dl (65-105)
[2022-04-22 14:48] LABS: Basophils Percent Auto 0.2 % (0.2-1.2); Hemoglobin 12.4 g/dL (14.0-18.0); Immature Granulocyte Absolute 0.29 K/mm3 (0.00-0.031); Immature Granulocyte Percent A 1.3 % (0-0.5); Lymphocytes Absolute Auto 0.21 K/mm3 (0.9-3.2); Lymphocytes Percent Auto 0.9 % (18.3-44.2); Mean Corpuscular HGB Conc 31.8 g/dl (32-36); Mean Corpuscular Hemoglobin 26.9 pg (26-34); Mean Corpuscular Volume 84.6 fl (80-100); Mean Platelet Volume 9.8 fl (7.4-10.4); Monocytes Absolute Auto 0.5 K/mm3 (0.1-0.6); Monocytes Percent Auto 2.4 % (2.6-8.5); Neutrophils Absolute Auto 21.4 K/mm3 (1.3-6.7); Neutrophils Percent Auto 95.2 % (45.5-73.1); Platelet Count Result 159 k/mm3 (150-375); Red Blood Count 4.61 M/mm3 (4.6-6.20); Red Cell Distribution Width 14.6 % (11.5-14.5); White Blood Count 22.5 K/mm3 (4.5-10.0)
[2022-04-22 14:58] LABS: Lactic Acid Reflex 2.4 mmol/L (0.7-2.0)
[2022-04-22 14:59] LABS: Alanine Aminotransferase 29 U/L (6-50); Albumin Level 4.2 g/dL (3.5-5.1); Alkaline Phosphatase 77 U/L (38-126); Anion Gap 7 mmol/L (8-16); Aspartate Amino Transferase 67 U/L (17-59); Bilirubin,Total 1.9 mg/dL (0.2-1.3); Blood Urea Nitrogen 22 mg/dL (9-20); Calcium 8.4 mg/dL (8.4-10.2); Carbon Dioxide 25 mmol/L (22-30); Chloride 98 mmol/L (98-107); Estimated CRCL calculation 42 ml/min; Estimated Glomerular Filt Rate 39; Glucose 156 mg/dL (65-110); Potassium 3.8 mmol/L (3.4-5.0); Sodium 130 mmol/L (137-145)
[2022-04-22 15:23] LABS: Influenza A QL RT-PCR Negative (Negative); Influenza B QL RT-PCR Negative (Negative); SARS-CoV-2 RNA PCR Negative
[2022-04-22] MEDS: SODIUM CHLORIDE 0.9% IV 1,000 ML 150 ML IV CONT (15:25)
[2022-04-22 15:29] LABS: Appearance Urine Clear (Clear); Bacteria Urine None Seen /hpf; Bilirubin Urine Negative (Negative); Blood Urine 3+ (Negative); Color Urine Yellow (Yellow); Glucose Urine UA Negative (Negative); Ketones Urine 1+ mg/dL (Negative); Leukocyte Esterase Ur Negative LEU/UL (Negative); Nitrate Urine Negative (Negative); Protein Urine 2+ mg/dL (Negative); Specific Grav Ur 1.018 (1.001-1.035); Squamous Epithelial Cell Urine None seen /hpf (Few); WBC Urine 0-5 /hpf
[2022-04-22 15:54] LABS: Add Urine Microscopic? YES
--- NOTE | 2022-04-22 16:53 | PC.NURSE ---
Pt spilled urine from urinal onto pants. Patient refused to let this RN take off soiled pants/change sheets. Patient stated to this RN Just leave me alone will you? . Patient axox4.
--- NOTE | 2022-04-22 17:24 | ED.GENADULT ---
HPI - General Adult General Chief complaint: Weakness Stated complaint: bilateral leg weakness Time Seen by Provider: 04/22/22 14:04 Source: patient and family Mode of arrival: wheelchair Limitations: no limitations History of Present Illness HPI narrative: 76-year-old with a history of CAD, diabetes, hypertension was brought in by his from home with complaints of marked weakness since yesterday. Patient reports that last evening he was having intense chills which lasted about 3 to 4 hours, followed by unable to walk, extreme weakness in the lower extremities and has been quite confused since yesterday. She also reports that she laid in his recliner all night and was found to be incontinent this morning. Patient denies any headache, chest pain, shortness of breath or abdominal pain. Related Data Home Medications Medication Instructions Recorded Confirmed atorvastatin 40 mg tablet 40 mg PO DAILY 07/24/20 12/03/21 oxycodone-acetaminophen 7.5 mg-325 1 tablet PO Q6H PRN neuropathy 07/24/20 12/03/21 mg tablet (Percocet) omeprazole 40 mg capsule,delayed 40 mg PO BID 12/01/21 12/03/21 release promethazine 25 mg tablet 25 mg PO Q6H PRN Nausea 12/01/21 12/03/21 Allergies Allergy/AdvReac Type Severity Reaction Status Date / Time No Known Allergies Allergy Verified 04/22/22 12:24 Review of Systems Review of Systems: All systems reviewed & are unremarkable except as noted in HPI and below Constitutional: Constitutional: Reports no additional constitutional complaints Eyes: Eyes: Reports no additional eye complaints ENT: Reports system reviewed and no additional complaints, except as documented Cardiovascular: Cardiovascular: Reports no additional cardiovascular complaints Respiratory: Respiratory: Reports no additional respiratory complaints Gastrointestinal: Gastrointestinal: Reports no additional gastrointestinal complaints Genitourinary: Genitourinary: Reports no additional male genitourinary complaints Musculoskeletal: Musculoskeletal: Reports no additional musculoskeletal complaints Integumentary/Breasts: Skin/Breast: Reports system reviewed and no additional complaints, except as docu Neurologic: Reports system reviewed and no additional complaints, except as documented Psychiatric: Psychiatric: Reports no additional psychiatric complaints Endocrine: Endocrine: Reports no additional endocrine complaints PMFSH Past Medical History Medical History (Updated 04/22/22 @ 17:51 by Devin Cespedes MD) Coronary artery disease History of 2 vessel bypass at the time of aortic valve replacement in 2016 at [facility]. Iron deficiency anemia Started on iron in spring 2020. Etiology unclear, no workup has yet been pursued. Obstructive sleep apnea Patient states intolerance to CPAP. Peripheral neuropathy On oxycodone p.r.n. Type 2 diabetes mellitus No longer on medication after losing over 150 pounds. Surgical History Surgical History (Updated 12/01/21 @ 10:42 by Keron Bermeo MD) History of aortic valve replacement with bioprosthetic valve (11/2015) Performed at [facility]. History of coronary artery bypass graft x 2 (11/2015) Performed at [facility]. History of gastric bypass (2011) History of open heart surgery (~11/2015) History of repair of right rotator cuff Family History Family History Mother Acute myocardial infarction Father Cerebrovascular accident Grandparent Leukemia Social History Social History Social History: The patient is and lives with his in [place]. They have 3 grown daughters. He is retired from the [employer] Smoked 1.5 packs of cigarettes per day for many years and quit about 30 years ago. He continues to chew tobacco. No alcohol or illicit substance abuse. He designates his , Aretha, a
[2022-04-22 17:45] LABS: Reflex Lactic Acid Yes or No Add Lactic
[2022-04-22 18:09] LABS: Glucose Point of Care 118 mg/dl (65-105)
--- NOTE | 2022-04-22 18:15 | PM.IMHP ---
H&P: HPI History of Present Illness Date/Time: 04/22/22 18:15 Chief Complaint: Weakness. Narrative: This is a 76-year-old male with coronary artery disease status post 2 vessel bypass, valvular heart disease status post aortic valve replacement 2015, chronic anemia, untreated sleep apnea, GERD, and diet-controlled diabetes who presented to the emergency department via private vehicle from home for evaluation of weakness. Patient is not fully cooperative with questioning or exam and a majority the following history is obtained from his , Aretha. The patient ambulates with a cane however last night around dinner time he was unable to stand without complete assistance from Aretha and she tells me that it took her 4 hours to get him from the bar stool in the kitchen to the recliner because he was so weak. He had several episodes of urinary incontinence which is unusual for him and she spent a lot of the night cleaning him up. She also notes that he seems confused and his demeanor was different; he was saying mean things to her which is very much unlike him. Eventually she went off to bed and left him in the recliner to sleep. When she got up this morning he was reclined on the couch, asleep. He was unable to get himself up due to ongoing weakness and called 911 however he refused to go in the ambulance and it took two EMS personnel to get him into his car for his to bring him in. At the time my evaluation he is lying in bed and has his eyes closed. He did not open his eyes and he answered only a few questions. He reports that he has pain all over and he is unwilling to answer specific follow-up questions. I was not able to get a great exam from him however the blood sinus the ED was able to complete a neurologic exam and he was reportedly able to perform that without much issue aside from generalized weakness. He has not complained of anything the last couple of days according to the . Specifically he has not mentioned having fever, chills, sweats, headache, cold symptoms, chest pain, shortness a breath, nausea, vomiting, diarrhea, or dysuria. Temperature was 101.4? on arrival. Blood pressures have been stable and he is intermittently tachycardic. Pertinent labs include a WBC of 22.5, BUN 22, creatinine 1.70, sodium 130, lactic acid 2.4, total bilirubin 1.9, AST 67. Urinalysis was positive for 2+ protein, 1+ ketones, and 3+ blood. It was negative for nitrates, leukocyte esterase, bacteria, and white blood cells. He was negative for influenza and COVID. Brain CT showed old infarcts and stable extensive nonspecific cerebral white matter disease. Chest x-ray showed mild atelectasis in the lower lung zones. Review of Systems Review of Systems: Unable to be obtained as detailed above. [facility] Past Medical History Medical History Coronary artery disease History of 2 vessel bypass at the time of aortic valve replacement in 2015 at [facility]. Iron deficiency anemia Started on iron in spring 2020. Etiology unclear, no workup has yet been pursued. Obstructive sleep apnea Patient states intolerance to CPAP. Peripheral neuropathy On oxycodone p.r.n. Type 2 diabetes mellitus No longer on medication after losing over 150 pounds. Surgical History Surgical History History of aortic valve replacement with bioprosthetic valve (11/2015) Performed at [facility]. History of coronary artery bypass graft x 2 (11/2015) Performed at [facility]. History of gastric bypass (2011) History of open heart surgery (~11/2015) History of repair of right rotator cuff Family History Family History Mother Acute myocardial infarction Father Cerebrovascular accident Grandparent Leukemia Social History Social History (Updated 04/22/22 @ 18:46 by Basilia Stone
[2022-04-22 18:28] LABS: Lactic Acid 2.3 mmol/L (0.7-2.0)
--- NOTE | 2022-04-22 20:40 | PC.NURSE ---
Pt a&o x2, confused at times, pt anxious and uncooperative. Pt on telemetry, pacemaker, at bedside. Medications reviewed with the spouse. Pt in bed, call light within reach. Pt is a high fall risk, fell 4 times prior to arrival at ED.
[2022-04-22 23:09] LABS: Glucose Point of Care 110 mg/dl (65-105)
[2022-04-23] VITALS (12 sets, daily range): BP systolic 126–141; BP diastolic 63–70; PULSE 93–124; RESP 16–20; TEMP 36.4–38.8; O2SAT 97–99
--- NOTE | 2022-04-23 | ECHO_ITS ---
Patient Info Name: Khang Barber Age: 76 years : 1945 Gender: Male Ht: 75 in Wt: 196 lbs BSA: 2.17 m2 HR: 110 bpm BP: 141 / 70 mmHg Heart Rhythm: Sinus Rhythm Technical Quality: Fair Exam Date: 04/23/2022 2:35 PM Exam Location: [facility] Pulmonary Exam Room: 343 Patient Status: Inpatient Admit Date: 04/22/2022 Staff Ordering Physician: Gaurang Carcamo MD Nutrition Aides Teacher: Simi Wharton RDCS Attending Provider: Socorro Evans DO Exam Type: CA echo doppler color flow Study Info Indications - bacteremia hx/o avr cad cabg Complete two-dimensional, color flow and Doppler transthoracic echocardiogram is performed. Summary 1. Complete two-dimensional, color flow and Doppler transthoracic echocardiogram is performed. 2. Left ventricular hypertrophy normal systolic function and grade 1 diastolic noncompliance. 3. Trileaflet aortic valve with mild sclerosis. 4. Calcified mitral valve annulus. 5. Trivial jet of mitral regurgitation. Left Ventricle Left ventricular chamber dimension is normal. Left ventricular systolic function is normal, estimated at 55-60%. There is moderate concentric increased left ventricular wall thickness. The left ventricular diastolic function is grade I diastolic dysfunction. Right Ventricle Right ventricular chamber dimension is normal. Left Atria Left atrial chamber dimension is normal. Right Atria Right atrial chamber dimension is normal. Aortic Valve The aortic valve is trileaflet. There is mild aortic valve sclerosis. Pulmonic Valve The pulmonic valve is not well visualized. Mitral Valve The mitral valve has normal leaflets. There is trace mitral valve regurgitation. The mitral valve annulus is mildly calcified. Tricuspid Valve The tricuspid valve leaflets are normal. Pericardium/Pleural The pericardium appears normal. Aorta The aortic root size at the sinus of Valsalva is normal. Left Ventricular Outflow Tract Name Value Normal LVOT 2D LVOT Diameter 2.1 cm LVOT Doppler LVOT Peak Gradient 6 mmHg LVOT Mean Gradient 3 mmHg LVOT VTI 17 cm LVOT VTI/AV VTI Ratio 0.6 LVOT Stroke Volume 59 ml LVOT CO 15.9 l/min LVOT CI 7.3 l/min/m2 Pulmonic Valve Name Value Normal PV Doppler PV Peak Gradient 2 mmHg Mitral Valve Name Value Normal MV Doppler MV Decel Oliver 474 cm/s2 MV PHT
[2022-04-23] MEDS: oxyCODONE/ACETAMINOPHEN (*CRX) 10-325 MG TABLET 1 TAB PO (00:07)
[2022-04-23] MEDS: SODIUM CHLORIDE 0.9% IV 1,000 ML 125 ML IV CONT ×4 (00:28→21:07)
--- NOTE | 2022-04-23 01:33 | ECG_ITS ---
Rate 105 SC 161 QRSd 152 QT 321 QTc 425 --[place]-- P 41 QRS -84 T 64 SINUS TACHYCARDIA WITH OCCASIONAL SUPRAVENTRICULAR PREMATURE COMPLEXES POSSIBLE LEFT ATRIAL ENLARGEMENT RIGHT BUNDLE BRANCH BLOCK LEFT ANTERIOR FASCICULAR BLOCK ABNORMAL ECG COMPARED TO ECG 04/23/2022 02:08:47 NO SIGNIFICANT CHANGES Electronically Signed On 04-25-2022 13:59:50 MUSEUM OR ZOO DIRECTOR by Julián MCKEON
[2022-04-23] MEDS: LORazepam INJ (*CRX) 2 MG/ML VIAL 1 MG IV PUSH (02:39)
[2022-04-23 06:27] LABS: Ammonia < 9 umol/L (9-30)
[2022-04-23 06:53] LABS: Hematocrit 39.6 % (42.0-52.0); Hemoglobin 12.5 g/dL (14.0-18.0); Immature Platelet Fraction Pct 4.6 % (0.9-11.2); Mean Corpuscular HGB Conc 31.6 g/dl (32-36); Mean Corpuscular Hemoglobin 26.5 pg (26-34); Mean Corpuscular Volume 83.9 fl (80-100); Mean Platelet Volume 10.3 fl (7.4-10.4); Platelet Count Result 95 k/mm3 (150-375); Red Blood Count 4.72 M/mm3 (4.6-6.20); Red Cell Distribution Width 14.8 % (11.5-14.5); White Blood Count 22.2 K/mm3 (4.5-10.0)
[2022-04-23 07:02] LABS: Glucose Point of Care 72 mg/dl (65-105)
[2022-04-23 07:03] LABS: Lactic Acid Reflex 1.7 mmol/L (0.7-2.0)
[2022-04-23 07:04] LABS: Alanine Aminotransferase 32 U/L (6-50); Albumin Level 3.5 g/dL (3.5-5.1); Alkaline Phosphatase 48 U/L (38-126); Anion Gap 7 mmol/L (8-16); Aspartate Amino Transferase 110 U/L (17-59); Bilirubin,Total 2.1 mg/dL (0.2-1.3); Blood Urea Nitrogen 30 mg/dL (9-20); Calcium 8.1 mg/dL (8.4-10.2); Carbon Dioxide 24 mmol/L (22-30); Chloride 98 mmol/L (98-107); Estimated CRCL calculation 45 ml/min; Estimated Glomerular Filt Rate 42; Glucose 114 mg/dL (65-110); Magnesium 1.9 mg/dL (1.6-2.3); Potassium 4.2 mmol/L (3.4-5.0); Sodium 129 mmol/L (137-145)
[2022-04-23 07:15] LABS: Creatine Kinase 2215 U/L (55-170)
[2022-04-23 07:29] LABS: CRP 30.7 mg/dL (<1.0)
[2022-04-23 07:44] LABS: Glucose Point of Care 110 mg/dl (65-105)
[2022-04-23 12:07] LABS: Band Neutrophils Percent 9 % (0-6); Lymphocytes Absolute Manual 0.66 K/mm3 (1.1-4.5); Monocytes Absolute Manual 0.44 K/mm3 (0.1-0.90); Monocytes Percent Manual 2 % (3-9); Neutrophils Absolute Manual 21.09 K/mm3 (1.3-6.7); Neutrophils Percent Manual 86 % (46-73); Platelet Estimate Decreased (Adequate); Schistocytes None Seen (NORMAL); Total Cells Counted 100
[2022-04-23 12:25] LABS: Glucose Point of Care 90 mg/dl (65-105)
--- NOTE | 2022-04-23 14:22 | PM.IMPN ---
Progress Note: A&P Assessment and Plan (1) Sepsis: Code(s): A41.9 - Sepsis, unspecified organism Status: Acute (2) Altered mental status: Qualifiers: Altered mental status type: unspecified Qualified Code(s): R41.82 - Altered mental status, unspecified Code(s): R41.82 - Altered mental status, unspecified Status: Acute (3) Generalized weakness: Code(s): R53.1 - Weakness Status: Acute (4) Acute kidney injury: Code(s): N17.9 - Acute kidney failure, unspecified Status: Acute Plan Acute encephalopathy CT head is negative. PT OT to see. Likely due to underlying sepsis. Still quite confused and agitated needing pharmacological agent. Will get MRI brain to evaluate. If not improving need to do lumbar puncture to further evaluate Severe sepsis with fever lactic acidosis tachycardia. Unclear etiology. UA is negative. Chest x-ray and CT abdomen is negative. Get a lumbar MRI and x-ray foot. Mildly tachycardic will add beta-rodríguez Lactic acidosis resolved with IV hydration Negative for flu and COVID Thrombocytopenia likely due to sepsis Bacteremia with Gram-positive cocci in clusters initiate vancomycin. Currently on Zosyn as well which will be continued unclear source as of yet. Chest x-ray is negative. CT abdomen pelvis with gallbladder distension. Ultrasound abdomen unremarkable. Will get echocardiogram. Possible diskitis his lower extremity weakness as reported. Will get lumbar spine MRI. Bilateral great toe ulcerations chronic will get x-ray to rule out any underlying ostia CHINMAY creatinine 1.7 baseline is 1. Continue IV hydration slowly improved. DVT prophylaxis SCD. Thrombocytopenia worsened today. Will hold off on any pharmacologic agent. Recheck in a.m., cytopenia likely due to sepsis History of gastric bypass surgery Code status full code Subjective Date/time seen: 04/23/22 14:22 Interval history: Patient was given Ativan earlier. Currently sleepy. Discussed with at bedside. He started having confused episodes and shaking yesterday. Noted to have bacteremia. Review of Systems Review of Systems: ROS unobtainable: Yes unobtainable due to mental status Exam Narrative: General:??Moderately ill-appearing gentleman lying in bed somnolent 9 acute distress HEENT:??Normocephalic, atraumatic. Neck:?Supple. Nontender Respiratory:? Diminished breath sound bilaterally, no wheezes Cardiovascular:??Tachycardic, S1-S2.?Soft murmur at the upper sternal border.? Well-healed sternotomy. Gastrointestinal:??Soft nontender Skin:??Warm and dry.? Extremities are warm and perfused. Bilateral great toe with healed ulcers no drainage noted Extremities:??No cyanosis, clubbing, or edema. Radial and pedal pulses intact.? Neurological:? Somnolent no obvious facial asymmetry, Objective Data Vital Signs Vital Signs: Vital Signs - 24 hr 04/22/22 14:30 04/22/22 14:45 04/22/22 14:46 Temperature Pulse Rate 108 H 109 H 108 H Respiratory Rate 20 20 17 Blood Pressure 161/83 H Pulse Oximetry Oxygen Delivery 04/22/22 15:00 04/22/22 15:06 04/22/22 15:07 Temperature Pulse Rate 102 H 93 116 H Respiratory Rate 22 H 21 H 22 H Blood Pressure 159/74 H Pulse Oximetry Oxygen Delivery 04/22/22 15:15 04/22/22 15:16 04/22/22 15:30 Temperature Pulse Rate 88 89 115 H Respiratory Rate 20 20 18 Blood Pressure 172/81 H Pulse Oximetry Oxygen Delivery 04/22/22 15:32 04/22/22 15:45 04/22/22 16:11 Temperature Pulse Rate 116 H 102 H 84 Respiratory Rate 20 26 H Blood Pressure 169/92 H Pulse Oximetry 100 100 Oxygen Delivery 04/22/22 16:12 04/22/22 16:15 04/22/22 16:16 Temperature Pulse Rate 84 84 85 Respiratory Rate 15 23 H 22 H Blood Pressure 158/80 H 155/72 H Pulse Oximetry 100 100 100 Oxygen Delivery 04/22/22 16:30 04/22/22 16:31 04/22/22 16:52 Temperature Pulse Rate 85 85 90 Respiratory Ra
--- NOTE | 2022-04-23 14:39 | PCPTNOTE ---
Attempted PT evaluation, pt getting an echo. Will follow.
[2022-04-23 15:36] LABS: Immature Platelet Fraction Pct 6.4 % (0.9-11.2); Mean Platelet Volume 10.9 fl (7.4-10.4); Platelet Count Result 59 k/mm3 (150-375)
[2022-04-23 15:46] LABS: Magnesium 1.9 mg/dL (1.6-2.3)
[2022-04-23 16:01] LABS: INR 1.4; Prothrombin Time 16.5 Seconds (11.1-14.7)
[2022-04-23 16:02] LABS: Fibrinogen 400 mg/dl (215-510); Partial Thromboplastin Time 36.2 SECONDS (22.3-36.8)
[2022-04-23 16:15] LABS: D Dimer 10.18 ug/mL (<0.48); Procalcitonin 36.1 ng/mL
[2022-04-23 16:24] LABS: Erythrocyte Sedimentation Rate 19 mm/hr (0-20)
[2022-04-23 16:25] LABS: CRP 36.1 mg/dL (<1.0)
[2022-04-23] MEDS: PANTOPRAZOLE SODIUM IV 40 MG VIAL IV PUSH (16:57)
[2022-04-23 17:50] LABS: Glucose Point of Care 163 mg/dl (65-105)
[2022-04-23] MEDS: METOPROLOL TARTRATE INJ 5 MG/5 ML VIAL IV PUSH (19:56)
--- NOTE | 2022-04-23 20:30 | PC.NURSE ---
This RN called Basilia regarding pt's HR and rhythm. HR, rhythm reported. Advised about pt spitting out PO meds. New orders received to change PO Metoprolol to IV form. Pt received IV push. HR improved within 30 minutes, called back and informed Basilia of new HR. No further orders. Will continue to monitor.
[2022-04-23 23:28] LABS: Glucose Point of Care 147 mg/dl (65-105)
[2022-04-24] VITALS (16 sets, daily range): BP systolic 113–145; BP diastolic 61–81; PULSE 85–120; RESP 20–24; TEMP 36.1–38; O2SAT 95–100
[2022-04-24] MEDS: METOPROLOL TARTRATE INJ 5 MG/5 ML VIAL IV PUSH ×4 (02:50→20:16)
[2022-04-24] MEDS: SODIUM CHLORIDE 0.9% IV 1,000 ML 125 ML IV CONT ×2 (02:50→17:34)
[2022-04-24 06:23] LABS: Glucose Point of Care 152 mg/dl (65-105)
[2022-04-24 06:36] LABS: Alanine Aminotransferase 30 U/L (6-50); Alkaline Phosphatase 50 U/L (38-126); Anion Gap 8 mmol/L (8-16); Aspartate Amino Transferase 87 U/L (17-59); Bilirubin,Total 1.8 mg/dL (0.2-1.3); Blood Urea Nitrogen 39 mg/dL (9-20); Carbon Dioxide 20 mmol/L (22-30); Chloride 104 mmol/L (98-107); Estimated CRCL calculation 40 ml/min; Estimated Glomerular Filt Rate 37; Glucose 149 mg/dL (65-110); Potassium 3.5 mmol/L (3.4-5.0); Sodium 132 mmol/L (137-145)
[2022-04-24 06:43] LABS: Basophils Percent Auto 0.2 % (0.2-1.2); Eosinophils Absolute Auto 0.1 K/mm3 (0-0.3); Eosinophils Percent Auto 0.4 % (0-4.4); Hematocrit 37.9 % (42.0-52.0); Hemoglobin 12.3 g/dL (14.0-18.0); Immature Granulocyte Absolute 0.26 K/mm3 (0.00-0.031); Immature Granulocyte Percent A 1.4 % (0-0.5); Immature Platelet Fraction Pct 11.5 % (0.9-11.2); Lymphocytes Absolute Auto 0.47 K/mm3 (0.9-3.2); Lymphocytes Percent Auto 2.5 % (18.3-44.2); Mean Corpuscular HGB Conc 32.5 g/dl (32-36); Mean Corpuscular Hemoglobin 26.6 pg (26-34); Monocytes Absolute Auto 0.9 K/mm3 (0.1-0.6); Monocytes Percent Auto 4.6 % (2.6-8.5); Neutrophils Absolute Auto 16.9 K/mm3 (1.3-6.7); Neutrophils Percent Auto 90.9 % (45.5-73.1); Platelet Count Result 27 k/mm3 (150-375); Red Blood Count 4.62 M/mm3 (4.6-6.20); White Blood Count 18.6 K/mm3 (4.5-10.0)
[2022-04-24 08:41] LABS: Glucose Point of Care 163 mg/dl (65-105)
[2022-04-24] MEDS: PANTOPRAZOLE SODIUM IV 40 MG VIAL IV PUSH (09:02)
--- NOTE | 2022-04-24 09:54 | PCOTNOTE ---
Attempted OT evaluation, pt. demonstrated difficulty and limited compliance with PT evaluation. Nursing concerned for pt. condition and stating that pt. may need to be transferred to higher acuity unit, holding off on OT evaluation now, following.
[2022-04-24 11:44] LABS: Glucose Point of Care 140 mg/dl (65-105)
--- NOTE | 2022-04-24 16:28 | PM.IMPN ---
Progress Note: A&P Assessment and Plan (1) Sepsis: Code(s): A41.9 - Sepsis, unspecified organism Status: Acute (2) Altered mental status: Qualifiers: Altered mental status type: unspecified Qualified Code(s): R41.82 - Altered mental status, unspecified Code(s): R41.82 - Altered mental status, unspecified Status: Acute (3) Generalized weakness: Code(s): R53.1 - Weakness Status: Acute (4) Acute kidney injury: Code(s): N17.9 - Acute kidney failure, unspecified Status: Acute Plan Acute encephalopathy CT head is negative. PT OT to see. Likely due to underlying sepsis. Still quite confused and agitated needing pharmacological agent. Will get MRI brain to evaluate. If not improving need to do lumbar puncture to further evaluate Severe sepsis with fever lactic acidosis tachycardia. Unclear etiology. UA is negative. Chest x-ray and CT abdomen is negative. Get a lumbar MRI and x-ray foot. Mildly tachycardic will add beta-rodríguez. Since not able to take p.o. on IV scheduled Lactic acidosis resolved with IV hydration Negative for flu and COVID Thrombocytopenia likely due to sepsis Bacteremia with Gram-positive cocci in clusters initiate vancomycin. identified as Staph aureus. Currently on Zosyn as well which will be continued unclear source as of yet. Chest x-ray is negative. CT abdomen pelvis with gallbladder distension. Ultrasound abdomen unremarkable. echo with no vegetation. Possible diskitis his lower extremity weakness as reported. Lumbar MRI pending Bilateral great toe ulcerations chronic will get x-ray to rule out any underlying ostia CHINMAY creatinine 1.7 baseline is 1. Continue IV hydration slowly improved. DVT prophylaxis SCD. Thrombocytopenia Continues to worsen.. Will hold off on any pharmacologic agent. D-dimer elevated however fibrinogen normal History of gastric bypass surgery Code status full code Subjective Date/time seen: 04/24/22 16:28 Interval history: Patient still quite somnolent. However answer some questions today. Febrile overnight. Going to get MRI brain and lumbar spine today. Moving is extremities. Review of Systems Review of Systems: ROS unobtainable: Yes unobtainable due to mental status Exam Narrative: General:??Moderately ill-appearing gentleman lying in bed Lethargic not in acute distress HEENT:??Normocephalic, atraumatic. Neck:?Supple. Nontender Respiratory:? Diminished breath sound bilaterally, no wheezes Cardiovascular:?? intermittently tachycardic but better rate, S1-S2.?Soft murmur at the upper sternal border.? Well-healed sternotomy. Gastrointestinal:??Soft nontender Skin:??Warm and dry.? Extremities are warm and perfused. Bilateral great toe with healed ulcers no drainage noted Extremities:??No cyanosis, clubbing, or edema. Radial and pedal pulses intact.? Neurological:? Somnolent no obvious facial asymmetry, follow some commands Objective Data Vital Signs Vital Signs: Vital Signs - 24 hr 04/23/22 20:12 04/23/22 22:04 04/23/22 22:13 Temperature 98.5 F 102 F H 102 F H Pulse Rate 93 Respiratory Rate 20 Blood Pressure 126/64 Pulse Oximetry 99 Oxygen Delivery 04/23/22 20:00 04/23/22 20:00 04/24/22 00:00 Temperature Pulse Rate 107 H 93 96 Respiratory Rate 20 Blood Pressure Pulse Oximetry 99 Oxygen Delivery Room Air 04/24/22 03:36 04/24/22 04:00 04/24/22 06:00 Temperature 100.3 F H 97.9 F Pulse Rate 85 89 Respiratory Rate 20 Blood Pressure 145/66 H Pulse Oximetry 95 Oxygen Delivery 04/24/22 09:05 04/24/22 09:14 04/24/22 09:35 Temperature 100.4 F H 100.4 F H Pulse Rate 107 H Respiratory Rate Blood Pressure Pulse Oximetry Oxygen Delivery 04/24/22 09:18 04/24/22 12:14 04/24/22 09:05 Temperature 98.5 F Pulse Rate 91 Respiratory Rate Blood Pressure Pulse Oximetry Oxygen Delivery Room Air 04/24/22 09
[2022-04-24 16:50] LABS: Glucose Point of Care 122 mg/dl (65-105)
--- NOTE | 2022-04-24 19:23 | PC.NURSE ---
RN spoke with Hospitalist Dona to give update on patient condition. Patient is shivering, tachycardic, and voicing he does not feel well. Blood pressure is WNL (see vitals) and patient is afebrile. Stat lactic put in and will continue to monitor patient. Family is bedside and updated on patient condition and plan of care as well.
[2022-04-24 20:13] LABS: Lactic Acid Reflex 2.5 mmol/L (0.7-2.0)
--- NOTE | 2022-04-24 20:35 | P.PNCROSS_ITS ---
Event Note Event Note Event Note: Call received from the patient's nurse with update. Brain MRI showed multiple a cute infarcts scattered throughout the brain, possible septic emboli. He has a prostatic valve on concerns are for possible endocarditis with Staph bacteremia. Discussed with Dr. Gaurang Carcamo. Patient is to be transferred to the IMU for closer monitoring. He will broaden his antibiotic coverage and consult Cardiology tomorrow for SONIA. Lengthy discussion with the patient's and daughter at bedside. They understand the critical nature of his illness and agree that he would not want to be resuscitated if his status declined. Code status was changed to do not resuscitate.
[2022-04-24 22:57] LABS: Reflex Lactic Acid Yes or No Add Lactic
[2022-04-24 22:58] LABS: Vancomycin Trough 11.7 ug/mL (10.0-20.0)
[2022-04-24 23:29] LABS: Glucose Point of Care 131 mg/dl (65-105)
[2022-04-25] VITALS (19 sets, daily range): BP systolic 130–156; BP diastolic 64–83; PULSE 79–107; RESP 16–26; TEMP 36.6–38.7; O2SAT 97–100; BMI 23.8
[2022-04-25 00:12] LABS: Lactic Acid 1.4 mmol/L (0.7-2.0)
[2022-04-25] MEDS: METOPROLOL TARTRATE INJ 5 MG/5 ML VIAL IV PUSH ×4 (01:28→19:37)
[2022-04-25 04:49] LABS: Basophils Absolute Auto 0.1 K/mm3 (0.0-0.1); Basophils Percent Auto 0.3 % (0.2-1.2); Hemoglobin 12.4 g/dL (14.0-18.0); Immature Granulocyte Absolute 0.12 K/mm3 (0.00-0.031); Immature Granulocyte Percent A 0.6 % (0-0.5); Immature Platelet Fraction Pct 15.4 % (0.9-11.2); Lymphocytes Absolute Auto 0.52 K/mm3 (0.9-3.2); Lymphocytes Percent Auto 2.6 % (18.3-44.2); Mean Corpuscular HGB Conc 32.6 g/dl (32-36); Mean Corpuscular Hemoglobin 26.8 pg (26-34); Mean Corpuscular Volume 82.3 fl (80-100); Monocytes Absolute Auto 1.3 K/mm3 (0.1-0.6); Monocytes Percent Auto 6.5 % (2.6-8.5); Neutrophils Absolute Auto 18.1 K/mm3 (1.3-6.7); Red Blood Count 4.62 M/mm3 (4.6-6.20); Red Cell Distribution Width 15.4 % (11.5-14.5); White Blood Count 20.1 K/mm3 (4.5-10.0)
[2022-04-25] MEDS: SODIUM CHLORIDE 0.9% IV 1,000 ML 125 ML IV CONT (04:55)
[2022-04-25 05:05] LABS: Alanine Aminotransferase 33 U/L (6-50); Albumin Level 2.8 g/dL (3.5-5.1); Alkaline Phosphatase 53 U/L (38-126); Anion Gap 6 mmol/L (8-16); Aspartate Amino Transferase 94 U/L (17-59); Bilirubin,Total 1.8 mg/dL (0.2-1.3); Blood Urea Nitrogen 46 mg/dL (9-20); Calcium 7.8 mg/dL (8.4-10.2); Carbon Dioxide 20 mmol/L (22-30); Chloride 107 mmol/L (98-107); Estimated CRCL calculation 42 ml/min; Estimated Glomerular Filt Rate 39; Glucose 157 mg/dL (65-110); Magnesium 2.1 mg/dL (1.6-2.3); Potassium 3.3 mmol/L (3.4-5.0); Sodium 133 mmol/L (137-145)
[2022-04-25 05:14] LABS: Platelet Count Result 18 k/mm3 (150-375)
--- NOTE | 2022-04-25 07:54 | IDPHARM ---
Addendum entered by Hugh Richardson PharmD 04/25/22 08:37: Background: Should be noted - 04/24 UCX was obtained and is pending. will follow. Original Note: Subjective Pharmacy was consulted by Evangelina Carcamo regarding infectious diseases for Khang Barber. Khang Barber is a 76 year old M with concerns regarding concern for endocarditis with prosthetic aortic valve. Background The patient is currently receiving Vancomycin D3, Zosyn D3, and Gentamicin IV 1 mg/kg q8h D1. The patient's PMH includes Prosthetic aortic valve per the provider. His current stay also concerns generalized weakness preventing the patient from taking PO at this time, potential GI infectious etiology as well as being febrile until yesterday. Additionally, imaging shows some infarcts in brain MRI, TTE was negative, foot x-ray is negative for osteomyelitis. The patient's WBC was ~22 on admission, 18.6 yesterday and now 20.1 today. SCr has been stable around 1.7 since admission - patient antibiotics noted. The patient 04/22 blood cultures are growing staphylococcus aureus in 4/4 bottles with sensitivities showing MRSA sensitive to vancomycin, gentamicin, and rifampin. Assessment/Recommendation/Discussion Spoke with consulting provider regarding this patient. Patient is on appropriate empiric therapy for both MRSA BSI and Prosthetic Valve IE from MRSA although at the time of discussion sensitivities were not yet reported. As bacteremia clears, discussed addition of rifampin if appropriate and endocarditis confirmed. Vancomycin and rifampin therapy are recommended by the 2015 AHA IE Guidelines for at least 6 weeks and gentamicin for 2 weeks. The following are recommended - consider discontinuation of piperacillin/tazobactam if GI/Gallbladder etiology is ruled out to avoid an increase in CHINMAY risk while treating with these renal function dependent agents; look to obtain repeat blood cultures to document clearance of bloodstream infection (set ordered today by consulting provider); Obtain SONIA to confirm diagnosis of endocarditis so that, if negative gentamicin may be discontinued, and if positive rifampin therapy can start if appropriate. Will continue to follow. Thank you for the interesting consult. Hugh Richardson, [facility] Infectious Disease/Antimicrobial Stewardship Pharmacist 04/25/22; [id number]
[2022-04-25] MEDS: PANTOPRAZOLE SODIUM IV 40 MG VIAL IV PUSH (08:41)
[2022-04-25] MEDS: KCL 20 MEQ/SW 100 ML 100 ML 50 MEQ IVPB (08:41)
[2022-04-25 12:45] LABS: Glucose Point of Care 151 mg/dl (65-105)
--- NOTE | 2022-04-25 13:12 | PM.IMPN ---
Progress Note: A&P Assessment and Plan (1) Sepsis: Code(s): A41.9 - Sepsis, unspecified organism Status: Acute (2) Altered mental status: Qualifiers: Altered mental status type: unspecified Qualified Code(s): R41.82 - Altered mental status, unspecified Code(s): R41.82 - Altered mental status, unspecified Status: Acute (3) Generalized weakness: Code(s): R53.1 - Weakness Status: Acute (4) Acute kidney injury: Code(s): N17.9 - Acute kidney failure, unspecified Status: Acute Plan #Acute encephalopathy CT head is negative. PT OT to see. Likely due to underlying sepsis. Still quite confused and agitated needing pharmacological agent. MRI brain revealed multiple acute infarcts scattered likely septic Emboli. suspect endocarditis. In his case Prosthetic valve endocarditis. TTE however was negative. Will need ANDREAS to further evaluate. Cardiology consultation. Will also consult Neurology with regard to the MRI findings. # Severe sepsis with fever lactic acidosis tachycardia. Unclear etiology. UA is negative. Chest x-ray and CT abdomen is negative. Get a lumbar MRI and x-ray foot. Mildly tachycardic will add beta-rodríguez. Since not able to take p.o. on IV scheduled #Lactic acidosis resolved with IV hydration Negative for flu and COVID #Thrombocytopenia likely due to sepsis continues to worsen. Will consult Hematology #Bacteremia with Gram-positive cocci in clusters initiate vancomycin. identified as Staph aureus. Currently on Zosyn as well which will be continued unclear source as of yet. now since we know the causative organism will stop Zosyn. Blood culture came back as MRSA. No definitive source evident. Likely endocarditis. Will repeat blood culture today. Still spiking fever. Chest x-ray is negative. CT abdomen pelvis with gallbladder distension. Ultrasound abdomen unremarkable. echo with no vegetation. Possible diskitis his lower extremity weakness as reported. Lumbar MRI With L4-L5 moderate left neural foraminal stenosis otherwise unremarkable. 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 Andreas to be planned. Who will start a combination of gentamicin at this point for his bacteremia. Goals of care discussion with the family at bedside. No aggressive treatment wanted. DNR DNI conformed. Continue on current medical treatment aware that his quite sick that can lead to increase chances of near mortality and morbidity. Transfer to higher facility also discussed. #Bilateral great toe ulcerations chronic will get x-ray to rule out any underlying ostia #CHINMAY creatinine 1.7 baseline is 1. Continue IV hydration slowly improved. Varela in place. Continue IV hydration. Creatinine stable. #DVT prophylaxis SCD. Thrombocytopenia Continues to worsen.. Will hold off on any pharmacologic agent. D-dimer elevated however fibrinogen normal #History of gastric bypass surgery #Code status full code now switched to DNR DNI Subjective Date/time seen: 04/25/22 13:12 Interval history: patient remains somnolent. family at bedside. Discussed findings with the family still spiking fever this a.m.. Review of Systems Review of Systems: ROS unobtainable: Yes unobtainable due to mental status Exam Narrative: General:?? ill-appearing gentleman lying in bed Somnolent HEENT:??Normocephalic, atraumatic. Neck:?Supple. Nontender Respiratory:? coarse breath sounds bilaterally, no wheezes Cardiovascular:?? intermittently tachycardic but better rate, S1-S2.?Soft murmur at the upper sternal border.? Well-healed sternotomy. Gastrointestinal:??Soft nontender Skin:??Warm and dry.? Extremities are warm and perfused. Bilateral great toe with healed ulcers no drainage noted Extremities:??No cyanosis, clubbing, or edema. Radial and pedal pulses intact.? Neurological:? Somnolent no obvious facial asymmetry, not following commands Objective Data Vital Signs
--- NOTE | 2022-04-25 14:34 | WPDNEURCNPN ---
Assessment and Plan Assessment and plan (1) Acute stroke due to ischemia: Code(s): I63.9 - Cerebral infarction, unspecified Status: Acute (2) History of aortic valve replacement with bioprosthetic valve: Onset Date: 11/2015 Code(s): Z95.3 - Presence of xenogenic heart valve Status: Acute (3) Altered mental status: Qualifiers: Altered mental status type: unspecified Qualified Code(s): R41.82 - Altered mental status, unspecified Code(s): R41.82 - Altered mental status, unspecified Status: Acute (4) Generalized weakness: Code(s): R53.1 - Weakness Status: Acute (5) Sepsis: Code(s): A41.9 - Sepsis, unspecified organism Status: Acute Plan Mr. Barber is a 76 year old male with a history of CAD, aortic valve disease s/p bioprosthetic valve presenting due to altered mental status and generalized weakness in the setting of fever and leukocytosis. Blood culture positive for MRSA. MRI brain showed bihemispheric infarcts, raising concern for septic emboli due to endocarditis. Surface echocardiogram wa unrevealing. - Given distribution of stroke, concern for cardioembolic cause as mentioned due to possible endocarditis. Consult Cardiology for possible SONIA. If endocarditis for some reason seems unlikely, may need to consider other causes of cardioembolic stroke such as dysrhythmia (Holter or Loop?) - No anticoagulation or antiplatelet indicated at this time - As part of stroke work-up obtain CTA brain/carotid and LDL level Consult date: 04/25/22 Time Seen: 14:34 Reason for consult: Acute stroke HPI: Khang Barber is a 76 year old male with a history of CAD s/p 2 vessel bypass, Aortic valve disease s/p biopresthetic replacement, TRISHA, DM who presented with weakness. Patient presented after being unable to stand without assistance. At baseline he uses a cane to walk. also noted patient was confused and his demenaer was different. He also had several episodes of urinary incontinence which was unusual for him. called EMSl and apatient was brought in to [facility] ED. He did have a fever on arrival. He also had leukocytosis of 22.5. UA was not concerning for infection. CXr showed mild atelectasis, but not much else. CT head showed old bilateral infarcts. Patient had an MRI brain that showed acute infarcts bilaterally involving both the anterior and posterior circulation. Patient already had a surface echocardiogram which was unrevealing. Blood culture was positive for MRSA. HE is currently on antibiotics being treated for possible endocarditis. Review of Systems Review of Systems: ROS unobtainable: Yes unobtainable due to mental status PMFSH Past Medical History Medical History Coronary artery disease History of 2 vessel bypass at the time of aortic valve replacement in 2015 at [facility]. Iron deficiency anemia Started on iron in spring 2020. Etiology unclear, no workup has yet been pursued. Obstructive sleep apnea Patient states intolerance to CPAP. Peripheral neuropathy On oxycodone p.r.n. Type 2 diabetes mellitus No longer on medication after losing over 150 pounds. Surgical History Surgical History History of aortic valve replacement with bioprosthetic valve (11/2015) Performed at [facility]. History of coronary artery bypass graft x 2 (11/2015) Performed at [facility]. History of gastric bypass (2011) History of open heart surgery (~11/2015) History of repair of right rotator cuff Family History Family History Mother Acute myocardial infarction Father Cerebrovascular accident Grandparent Leukemia Social History Social History Social History: The patient is and lives with his in [place]
[2022-04-25] MEDS: SODIUM CHLORIDE 0.9% IV 1,000 ML 150 ML IV CONT ×2 (15:03→22:10)
[2022-04-25 15:13] LABS: Alveolar/Arterial O2 Gradient 32.4 mmHg; Base Excess ABG -1.8 mEq/l (+/-2.0); Fractional Inspired Oxygen 21 %; HCO3 ABG 20.2 mEq/l (22.0-26.0); Oxygen Content ABG 17.4 %vol (16.0-22.0); Oxygen Saturation ABG 97.2 % (95.0-100.0); Oxyhemoglobin 95.8 % THb (90.0-100.0); PCO2 ABG 26.9 mmHg (35.0-45.0); PO2 ABG 85.1 mmHg (80.0-100.0); PO2 FiO2 Ratio Arterial Blood 4.05 %; Total Hemoglobin 12.9 g/dL (12.0-18.0); pH ABG 7.493 (7.350-7.450)
[2022-04-25 15:15] LABS: Device ROOM AIR; Modified Allen's Test Pass; Site Drawn LEFT RADIAL
--- NOTE | 2022-04-25 16:08 | PCOTNOTE ---
Spoke with hospitalist, who requested hold on therapy for today with agreement from nursing. Following
--- NOTE | 2022-04-25 18:05 | PDONCCN ---
HPI - Date of Consult Date/Time: 04/25/22 18:05 Requesting Physician: Socorro Evans DO Primary Care Provider: Juan Pablo PetersBabita - Consult Narrative Reason for consult: Thrombocytopenia Narrative: Khang Barber is a 76 year old male with history of coronary artery disease status post bypass, valvular heart disease status post aortic valve replacement 2016, sleep apnea and diabetes came into the hospital for evaluation of generalized weakness. Patient used to ambulate with a cane but got so weak that he was not able to stand and was brought into the hospital by . He denies any fever but did have some chills and feeling of cold. His temperature on arrival was 101.4. Labs showed elevated WBC count with elevated creatinine. Brain CT scan showed old infarction and chest x-ray revealed atelectasis in the lower lung zones. COVID test was negative. Initial platelet count was [id number] now dropped down to 18,000. Abdominal CT scan showed gallbladder distention with possibility of acute cholecystitis. Neurology was consulted due to acute mental status changes. He was diagnosed with acute stroke and concern was cardioembolic event. Blood cultures came back positive for MRSA. He was started on vancomycin. Patient received 1st dose of vancomycin on April 23. He will also receive Zosyn on April 22. Review of Systems - Review of Systems All systems reviewed & are unremarkable except as noted in HPI and bel - Neurologic Reports system reviewed and no additional complaints, except as documented PMFSH Medical History: Medical History (Last Reviewed 04/25/22 @ 16:01 by Merry Frye MD) Coronary artery disease History of 2 vessel bypass at the time of aortic valve replacement in [address] [facility]. Iron deficiency anemia Started on iron in spring 2020. Etiology unclear, no workup has yet been pursued. Obstructive sleep apnea Patient states intolerance to CPAP. Peripheral neuropathy On oxycodone p.r.n. Type 2 diabetes mellitus No longer on medication after losing over 150 pounds. Surgical History: Surgical History (Last Reviewed 04/25/22 @ 16:01 by Merry Frye MD) History of aortic valve replacement with bioprosthetic valve Onset Date: 11/[address] [facility]. History of coronary artery bypass graft x 2 Onset Date: 11/[address] [facility]. History of gastric bypass Onset Date: 2011 History of open heart surgery Onset Date: ~11/2015 History of repair of right rotator cuff Family History: Family History (Last Reviewed 04/25/22 @ 16:01 by Merry Frye MD) Mother Acute myocardial infarction Father Cerebrovascular accident Grandparent Leukemia - Social History Social History: Social History (Last Reviewed 04/25/22 @ 16:01 by Merry Frye MD) Alcohol Use: Alcohol intake: never Substance Use: Substance use: never Substance use type: does not use Others: Spiritual care concerns: No Smoking Status: Smoking status: Former smoker Smokeless tobacco user: chewing tobacco Social Determinants of Health: Has the Lack of Transportation Kept You From Medical Appointments or From Getting Medications?: No Within the Past 12 Months, Were You Worried Whether Your Food Would Run Out Before You Got Money to Buy More?: Never True What is Your Housing Situation Today?: I Have Housing Are You Worried That in the Next 2 Months, You May Not Have Your Own Housing to Live In?: No Do You Have Trouble Paying Your Heating Or Electricity Bill?: No Do You Have Trouble Paying For Medicines?: No Are You Currently Unemployed and Looking for Work?: No Highest Level of Education Completed: Master's Degree or Higher Do You Have Trouble With Childcare or the Care of a Family Member?: No Exam - Vital Signs Vital Signs - 24 hr 04/24/22 18:30 04/24/22 20:02 04/24/22 21:57
[2022-04-25 18:57] LABS: Glucose Point of Care 174 mg/dl (65-105)
[2022-04-25 22:08] LABS: Gentamicin Trough 3.2 ug/mL (<1.0)
[2022-04-25 23:32] LABS: Glucose Point of Care 155 mg/dl (65-105)
[2022-04-26] VITALS (27 sets, daily range): BP systolic 140–181; BP diastolic 65–111; PULSE 64–112; RESP 18–30; TEMP 36.4–38.6; O2SAT 89–100
[2022-04-26 00:25] LABS: Vancomycin Trough 17.9 ug/mL (10.0-20.0)
[2022-04-26] MEDS: METOPROLOL TARTRATE INJ 5 MG/5 ML VIAL IV PUSH ×5 (01:27→20:41)
[2022-04-26 05:11] LABS: Basophils Absolute Auto 0.1 K/mm3 (0.0-0.1); Basophils Percent Auto 0.4 % (0.2-1.2); Eosinophils Absolute Auto 0.1 K/mm3 (0-0.3); Eosinophils Percent Auto 0.2 % (0-4.4); Hematocrit 35.7 % (42.0-52.0); Hemoglobin 11.6 g/dL (14.0-18.0); Immature Granulocyte Absolute 0.25 K/mm3 (0.00-0.031); Immature Granulocyte Percent A 1.1 % (0-0.5); Immature Platelet Fraction Pct 17.6 % (0.9-11.2); Lymphocytes Absolute Auto 0.45 K/mm3 (0.9-3.2); Mean Corpuscular HGB Conc 32.5 g/dl (32-36); Mean Corpuscular Hemoglobin 26.7 pg (26-34); Mean Corpuscular Volume 82.3 fl (80-100); Monocytes Absolute Auto 1.6 K/mm3 (0.1-0.6); Monocytes Percent Auto 7.2 % (2.6-8.5); Neutrophils Absolute Auto 19.9 K/mm3 (1.3-6.7); Neutrophils Percent Auto 89.1 % (45.5-73.1); Red Blood Count 4.34 M/mm3 (4.6-6.20); Red Cell Distribution Width 15.5 % (11.5-14.5); White Blood Count 22.3 K/mm3 (4.5-10.0)
[2022-04-26 05:20] LABS: Alanine Aminotransferase 29 U/L (6-50); Albumin Level 2.4 g/dL (3.5-5.1); Alkaline Phosphatase 66 U/L (38-126); Anion Gap 5 mmol/L (8-16); Aspartate Amino Transferase 55 U/L (17-59); Bilirubin,Total 1.8 mg/dL (0.2-1.3); Blood Urea Nitrogen 48 mg/dL (9-20); Calcium 7.5 mg/dL (8.4-10.2); Carbon Dioxide 20 mmol/L (22-30); Chloride 115 mmol/L (98-107); Estimated CRCL calculation 42 ml/min; Estimated Glomerular Filt Rate 39; Glucose 150 mg/dL (65-110); Potassium 3.1 mmol/L (3.4-5.0); Sodium 140 mmol/L (137-145)
[2022-04-26 05:23] LABS: Platelet Count Result 15 k/mm3 (150-375)
[2022-04-26 05:36] LABS: Platelet Estimate Decreased (Adequate); Schistocytes None Seen (NORMAL)
[2022-04-26] MEDS: SODIUM CHLORIDE 0.9% IV 1,000 ML 150 ML IV CONT (06:19)
[2022-04-26] MEDS: PANTOPRAZOLE SODIUM IV 40 MG VIAL IV PUSH (08:52)
--- NOTE | 2022-04-26 09:01 | PM.CNCAR ---
Assessment and Plan Assessment and plan (1) Acute stroke due to ischemia: Code(s): I63.9 - Cerebral infarction, unspecified Status: Acute (2) Sepsis: Code(s): A41.9 - Sepsis, unspecified organism Status: Acute (3) History of aortic valve replacement with bioprosthetic valve: Onset Date: 11/2015 Code(s): Z95.3 - Presence of xenogenic heart valve Status: Acute (4) MRSA bacteremia: Code(s): R78.81 - Bacteremia; B95.62 - Methicillin resistant Staphylococcus aureus infection as the cause of diseases classified elsewhere Status: Acute Plan We are consulted for SONIA for infective endocarditis evaluation in this patient with severe sepsis, MRSA bacteremia, acute brain infarcts, history of bioprosthetic aortic valve. Appropriate indication for SONIA in this patient. However, patient has severe thrombocytopenia with a platelet count of 15, which is a contraindication. Would need platelet count to be at least 50 for us to perform SONIA. Also, given his mental status, it would be better to have SONIA done with the assistance of Anesthesia team for sedation. If SONIA is performed when appropriate, patient would need his code status to be FULL CODE for the procedure. History of Present Illness History of Present Illness Consult date/time: 04/26/22 09:01 Requesting physician: Gaurang Carcamo MD Consult reason: Other (SONIA for endocarditis eval) Reason For Visit: SIRS/Altered Mental Status/Weakness Narrative: We are consulted for SONIA. Patient is mentally altered this morning, therefore, unable to provide any history. History obtained from chart, along with his friends that are at bedside. This is a 76-year-old male with a history of CAD s/p prior bypass, aortic valve disease s/p bioprosthetic valve, chronic anemia, untreated sleep apnea, GERD, diabetes who presented to [place] for evaluation of weakness. Patient found to have severe sepsis with MRSA bacteremia. He is now being treated for acute encephalopathy, severe thrombocytopenia, bacteremia, CHINMAY. Brain MRI showed scattered acute infarcts in the brain, along with scattered chronic infarcts. Echocardiogram 04/23 showed LVEF 55-60%, no significant valvular disease appreciated. Review of Systems Review of Systems: ROS unobtainable: Yes unobtainable due to medical condition and unobtainable due to mental status PMFSH Past Medical History Medical History Coronary artery disease History of 2 vessel bypass at the time of aortic valve replacement in 2015 at [facility]. Iron deficiency anemia Started on iron in spring 2020. Etiology unclear, no workup has yet been pursued. Obstructive sleep apnea Patient states intolerance to CPAP. Peripheral neuropathy On oxycodone p.r.n. Type 2 diabetes mellitus No longer on medication after losing over 150 pounds. Surgical History Surgical History History of aortic valve replacement with bioprosthetic valve (11/2015) Performed at [facility]. History of coronary artery bypass graft x 2 (11/2015) Performed at [facility]. History of gastric bypass (2011) History of open heart surgery (~11/2015) History of repair of right rotator cuff Family History Family History Mother Acute myocardial infarction Father Cerebrovascular accident Grandparent Leukemia Social History Social History Social History: The patient is and lives with his in [place]. They have 3 grown daughters. He is retired from the [employer]. Smoked 1.5 packs of cigarettes per day for many years and quit about 30 years ago. He continues to chew tobacco. No alcohol or illicit substance abuse. Smoking status: Former smoker Smokeless tobacco user: chewing tobacco Alcohol intake
[2022-04-26] MEDS: POTASSIUM CHLORIDE INJ 40 MEQ in SODIUM CHLORIDE 0.9% IV 500 ML 130 MEQ IVPB (10:05)
[2022-04-26 11:27] LABS: Immature Platelet Fraction Pct 17.6 % (0.9-11.2)
[2022-04-26 11:30] LABS: Platelet Count Result 17 k/mm3 (150-375)
[2022-04-26 12:13] LABS: Glucose Point of Care 127 mg/dl (65-105)
--- NOTE | 2022-04-26 13:58 | PCOTNOTE ---
Canceling pt. orders due to current severity of medical status. Hospitalist and nursing aware and in agreement
--- NOTE | 2022-04-26 15:04 | PM.IMPN ---
Progress Note: A&P Assessment and Plan (1) Sepsis: Code(s): A41.9 - Sepsis, unspecified organism Status: Acute (2) Altered mental status: Qualifiers: Altered mental status type: unspecified Qualified Code(s): R41.82 - Altered mental status, unspecified Code(s): R41.82 - Altered mental status, unspecified Status: Acute (3) Generalized weakness: Code(s): R53.1 - Weakness Status: Acute (4) Acute kidney injury: Code(s): N17.9 - Acute kidney failure, unspecified Status: Acute Plan #Acute encephalopathy CT head is negative. PT OT to see. Likely due to underlying sepsis. Still quite confused and agitated needing pharmacological agent. MRI brain revealed multiple acute infarcts scattered likely septic Emboli. suspect endocarditis. In his case Prosthetic valve endocarditis. TTE however was negative. Will need ANDREAS to further evaluate. Cardiology consultation. Neurology consulted. Will transfuse 2 units of platelets today. Repeat platelet in a.m. needs 50 K to perform a ANDREAS. # Severe sepsis with fever lactic acidosis tachycardia. Unclear etiology. UA is negative. Chest x-ray and CT abdomen is negative. Get a lumbar MRI and x-ray foot. Mildly tachycardic will add beta-rodríguez. Since not able to take p.o. on IV scheduled Likely etiology now endocarditis #Lactic acidosis resolved with IV hydration Negative for flu and COVID #Thrombocytopenia likely due to sepsis continues to worsen. Consulted hematology. Likely due to sepsis And DIC. No previous use of heparin. Transfuse platelet today #Bacteremia with Gram-positive cocci in clusters initiate vancomycin. identified as Staph aureusNow identified as MRSA initially was on Zosyn which has been discontinued. repeat Blood culture still positive from 04/25/2022. No definitive source evident. Likely endocarditis. Still spiking fever. Chest x-ray is negative. CT abdomen pelvis with gallbladder distension. Ultrasound abdomen unremarkable. echo with no vegetation. Possible diskitis his lower extremity weakness as reported. Lumbar MRI With L4-L5 moderate left neural foraminal stenosis otherwise unremarkable. 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 Andreas to be planned. Who will start a combination of gentamicin at this point for his bacteremia. Goals of care discussion with the family at bedside. No aggressive treatment wanted. DNR DNI conformed. Continue on current medical treatment aware that his quite sick that can lead to increase chances of near mortality and morbidity. Transfer to higher facility also discussed. Vancomycin trough 17 on 04/25/2022. Dose was changed on 04/24/2022. Adequate vancomycin dosing only since 04/24/2022 will give a today until we changed to combination therapy with potential daptomycin/ceftaroline. 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 Once bacteremia clears he will also be a candidate for start of rifampin concurrently. #Bilateral great toe ulcerations chronic will get x-ray to rule out any underlying ostia #CHINMAY creatinine 1.7 baseline is 1. Continue IV hydration slowly improved. Varela in place. Continue IV hydration. Creatinine stable. #DVT prophylaxis SCD. Thrombocytopenia Continues to worsen.. Will hold off on any pharmacologic agent. D-dimer elevated however fibrinogen normal #History of gastric bypass surgery #Code status full code now switched to DNR DNI # nutrition: Currently NPO. Dobbhoff placement with tube feed to consider in a.m. if not more awake Subjective Date/time seen: 04/26/22 15:04 Interval history: Daughter at bedside. He is little bit more responsive today. still intermittent having fever. Discussed with ID pharmacist discussed with manager psychiatry. Review of Systems Review of Systems: ROS unobtainable: Yes unobtainable due to mental status Exam Narrative: General:?? ill
[2022-04-26] MEDS: SODIUM CHLORIDE 0.9% IV 250 ML 30 ML IV CONT (15:51)
--- NOTE | 2022-04-26 16:30 | PCPTNOTE ---
Spoke with current hospitalist about pt condition and ability to safely participate in skilled therapy at this time. Hospitlaist in agreement to discharge PT orders due to pt's medical condition.
[2022-04-26 17:08] LABS: Glucose Point of Care 136 mg/dl (65-105)
[2022-04-26] MEDS: SODIUM CHLORIDE 0.9% IV 1,000 ML 75 ML IV CONT (19:01)
[2022-04-26] MEDS: TUBING, BLOOD PLUM PUMP TUBING 1 EACH XX (20:43)
[2022-04-26 21:30] LABS: Gentamicin Random 0.9 ug/mL (5.0-12.0)
[2022-04-26] MEDS: GENTAMICIN 80MG/SOD CHL 50 ML 80 MG/50 ML BAG 100 MG IVPB (22:42)
[2022-04-27] VITALS (21 sets, daily range): BP systolic 104–156; BP diastolic 49–84; PULSE 69–121; RESP 24–40; TEMP 36.4–37.3; O2SAT 97–100
[2022-04-27 00:08] LABS: Glucose Point of Care 121 mg/dl (65-105)
[2022-04-27] MEDS: METOPROLOL TARTRATE INJ 5 MG/5 ML VIAL IV PUSH ×4 (01:57→21:02)
[2022-04-27 05:04] LABS: Hematocrit 32.7 % (42.0-52.0); Hemoglobin 10.6 g/dL (14.0-18.0); Immature Platelet Fraction Pct 6.3 % (0.9-11.2); Mean Corpuscular HGB Conc 32.4 g/dl (32-36); Mean Corpuscular Hemoglobin 26.7 pg (26-34); Mean Corpuscular Volume 82.4 fl (80-100); Mean Platelet Volume 11.2 fl (7.4-10.4); Platelet Count Result 74 k/mm3 (150-375); Red Blood Count 3.97 M/mm3 (4.6-6.20); Red Cell Distribution Width 15.9 % (11.5-14.5); White Blood Count 23.6 K/mm3 (4.5-10.0)
[2022-04-27 05:12] LABS: INR 1.4; Prothrombin Time 16.7 Seconds (11.1-14.7)
[2022-04-27 05:13] LABS: Alanine Aminotransferase 38 U/L (6-50); Albumin Level 2.5 g/dL (3.5-5.1); Alkaline Phosphatase 88 U/L (38-126); Anion Gap 6 mmol/L (8-16); Aspartate Amino Transferase 76 U/L (17-59); Blood Urea Nitrogen 48 mg/dL (9-20); Calcium 7.8 mg/dL (8.4-10.2); Carbon Dioxide 19 mmol/L (22-30); Chloride 115 mmol/L (98-107); Estimated CRCL calculation 48 ml/min; Estimated Glomerular Filt Rate 46; Glucose 133 mg/dL (65-110); Sodium 140 mmol/L (137-145)
[2022-04-27 05:50] LABS: Band Neutrophils Percent 5 % (0-6); Lymphocytes Absolute Manual 0.47 K/mm3 (1.1-4.5); Metamyelocytes Percent 1 %; Monocytes Absolute Manual 0.23 K/mm3 (0.1-0.90); Monocytes Percent Manual 1 % (3-9); Neutrophils Absolute Manual 22.65 K/mm3 (1.3-6.7); Neutrophils Percent Manual 91 % (46-73); Total Cells Counted 100
[2022-04-27 05:51] LABS: Anisocytosis 2+ (NORMAL); Hypochromasia 2+ (NORMAL); Large Platelets Present; Macrocytosis 2+ (NORMAL); Microcytosis 1+ (NORMAL); Schistocytes 1+ (NORMAL)
[2022-04-27 05:52] LABS: Acanthocytes 1+ (NORMAL); Burr Cells 2+ (NORMAL); Crenated RBC 2+ (NORMAL); Hypersegmented Neutrophils Present; Ovalocytes 2+ (NORMAL); Poikilocytosis 1+ (NORMAL); Smudge Cells MANY
[2022-04-27 05:53] LABS: Target Cells 1+ (NORMAL)
[2022-04-27] MEDS: PANTOPRAZOLE SODIUM IV 40 MG VIAL IV PUSH (08:54)
--- NOTE | 2022-04-27 10:26 | PM.PNCARD ---
Progress Note: A&P Assessment and Plan (1) Acute stroke due to ischemia: Code(s): I63.9 - Cerebral infarction, unspecified Status: Acute (2) Sepsis: Code(s): A41.9 - Sepsis, unspecified organism Status: Acute (3) MRSA bacteremia: Code(s): R78.81 - Bacteremia; B95.62 - Methicillin resistant Staphylococcus aureus infection as the cause of diseases classified elsewhere Status: Acute (4) History of aortic valve replacement with bioprosthetic valve: Onset Date: 11/2015 Code(s): Z95.3 - Presence of xenogenic heart valve Status: Acute Plan We are consulted for SONIA for infective endocarditis evaluation in this patient with severe sepsis, MRSA bacteremia, acute brain infarcts, history of bioprosthetic aortic valve. Appropriate indication for SONIA in this patient. SONIA could not be done 04/26 due to severe thrombocytopenia with platelet count of 15. Platelet count has now improved to 70s after transfusions. Will proceed with SONIA today 04/27 with Anesthesia team. Patient to remain NPO for procedure. Subjective Date/time seen: 04/27/22 10:26 Interval history: Reason for visit: SONIA HPI: We are consulted for SONIA. Patient is mentally altered this morning, therefore, unable to provide any history. History obtained from chart, along with his friends that are at bedside. This is a 76-year-old male with a history of CAD s/p prior bypass, aortic valve disease s/p bioprosthetic valve, chronic anemia, untreated sleep apnea, GERD, diabetes who presented to [place] for evaluation of weakness. Patient found to have severe sepsis with MRSA bacteremia. He is now being treated for acute encephalopathy, severe thrombocytopenia, bacteremia, CHINMAY. Brain MRI showed scattered acute infarcts in the brain, along with scattered chronic infarcts. Echocardiogram 04/23 showed LVEF 55-60%, no significant valvular disease appreciated. Date of service 04/27: Platelet count improved from 15 to 70s. Patient remains mentally altered. Review of Systems Review of Systems: ROS unobtainable: Yes unobtainable due to medical condition and unobtainable due to mental status Exam Const: General: no acute distress HENMT: Mouth: Yes moist mucous membranes Eyes: General: appearance normal, both eyes and all related structures Neck: Neck: supple Resp: Effort & Inspection: normal respiratory effort Auscultation: diminished lung sounds Cardio: Rate: regular rate Rhythm: regular rhythm Heart sounds: no murmurs GI: GI Palp: Yes Soft to palpation Skin: General skin exam: normal color Neuro: Other: Altered mental status. Withdraws to pain Psych: Other: Altered mental status Objective Data Vital Signs Vital Signs: Vital Signs - 24 hr 04/26/22 12:00 04/26/22 12:00 04/26/22 14:00 Temperature 36.6 C Pulse Rate 88 97 96 Respiratory Rate 22 H Blood Pressure 146/67 H Pulse Oximetry 99 Oxygen Delivery 04/26/22 14:56 04/26/22 16:00 04/26/22 17:00 Temperature 38.6 C H 38.6 C H Pulse Rate 104 H 92 Respiratory Rate 20 Blood Pressure 142/74 H Pulse Oximetry 98 Oxygen Delivery 04/26/22 16:00 04/26/22 18:00 04/26/22 18:20 Temperature 38.6 C H Pulse Rate 85 105 H Respiratory Rate Blood Pressure Pulse Oximetry Oxygen Delivery 04/26/22 19:53 04/26/22 20:38 04/26/22 20:41 Temperature 36.4 C 37.1 C Pulse Rate 64 107 H 112 H Respiratory Rate 18 22 H Blood Pressure 181/111 H 140/78 Pulse Oximetry 96 100 Oxygen Delivery 04/26/22 20:53 04/26/22 20:55 04/26/22 21:35 Temperature 37.2 C 37.2 C 37.3 C Pulse Rate 92 101 H 109 H Respiratory Rate 22 H 22 H 22 H Blood Pressure 152/77 H 142/65 H 148/82 H Pulse Oximetry 100 100 100 Oxygen Delivery 04/26/22 21:51 04/26/22 22:02 04/26/22 20:00 Temperature 37.1 C 37.2 C Pulse Rate 104 H 111 H 108 H Respiratory Rate 22 H 22 H Blood Pressure 155/75 H 144/84 H Pulse Oximetry 100 100 Oxygen Delive
[2022-04-27] MEDS: GENTAMICIN 80MG/SOD CHL 50 ML 80 MG/50 ML BAG 100 MG IVPB ×2 (11:40→23:00)
[2022-04-27 12:11] LABS: Glucose Point of Care 121 mg/dl (65-105)
[2022-04-27] MEDS: SODIUM CHLORIDE 0.9% IV 1,000 ML 75 ML IV CONT (12:34)
[2022-04-27] MEDS: POTASSIUM CHLORIDE INJ 40 MEQ in SODIUM CHLORIDE 0.9% IV 500 ML 130 MEQ IVPB (13:01)
--- NOTE | 2022-04-27 13:09 | PC.NURSE ---
spoke with pt's -pt to have SONIA procedure today- code status changed to full
--- NOTE | 2022-04-27 14:21 | WPDANESEPPF ---
Anes - Initial Pre Proc Eval Procedure: Operation Date: 04/27/22 14:30 Proposed Procedures p Trans Esophageal Echo - Linnea Richardson MD Date/Time: 04/27/22 14:21 Surgeon: Socorro Evans DO Pre Op Diagnosis: SIRS/Altered Mental Status/Weakness Patient Data Age: 76 Gender: M Height: 1.96 m Weight: 108.9 kg Last Vital Signs Temp 98.4 F 04/27/22 12:00 Pulse 76 04/27/22 14:17 Resp 26 H 04/27/22 12:00 BP 156/79 H 04/27/22 12:00 Pulse Ox 98 04/27/22 12:00 O2 Del Method Room Air 04/27/22 09:53 Allergies Allergy/AdvReac Type Severity Reaction Status Date / Time No Known Allergies Allergy Verified 04/22/22 12:24 Home Medications Medication Instructions Recorded Confirmed Type oxycodone-acetaminophen 7.5 mg-325 1 tablet PO Q6H PRN neuropathy 07/24/20 04/22/22 History mg tablet (Percocet) omeprazole 40 mg capsule,delayed 40 mg PO DAILY 12/01/21 04/22/22 History release promethazine 25 mg tablet 25 mg PO Q6H PRN Nausea 12/01/21 04/22/22 History Laboratory Tests 04/26/22 04/26/22 04/26/22 11:18 17:05 20:56 WBC RBC Hgb Hct MCV MCH MCHC RDW Plt Count MPV Immature Gran % (Auto) Neut % (Auto) Lymph % (Auto) [place] % (Auto) Eos % (Auto) Baso % (Auto) Lymph # (Auto) [place] # (Auto) Eos # (Auto) Baso # (Auto) Abs Immat Gran (auto) Absolute Neuts (auto) Absolute Nucleated RBC Total Counted Neutrophils % (Manual) Band Neutrophils % Lymphocytes % (Manual) Monocytes % (Manual) Metamyelocytes % Nucleated RBC % Abs Neuts (Manual) Abs Lymphs (Manual) Abs Monocytes (Manual) Hypersegmented Neuts Smudge Cells Platelet Estimate Large Platelets % Immature Plt Fraction Hypochromasia Poikilocytosis Anisocytosis Microcytosis Macrocytosis Target Cells Ovalocytes Kinza Cells Crenated Cell Acanthocytes (Spur) Schistocytes PT INR Sodium Potassium Chloride Carbon Dioxide Anion Gap BUN Creatinine Estim Creat Clear Calc Estimated GFR Glucose POC Capillary Glucose 136 mg/dl H mg/dl (65-105) Calcium Magnesium Total Bilirubin AST ALT Alkaline Phosphatase Total Protein Albumin Random Gentamicin 0.9 ug/mL L ug/mL (5.0-12.0) Blood Type O Positive 04/26/22 04/27/22 04/27/22 23:50 04:45 04:45 WBC 23.6 K/mm3 H K/mm3 (4.5-10.0) RBC 3.97 M/mm3 L M/mm3 (4.6-6.20) Hgb 10.6 g/dL L g/dL (14.0-18.0) Hct 32.7 % L % (42.0-52.0) MCV 82.4 fl fl (80-100) MCH 26.7 pg pg (26-34) MCHC 32.4 g/dl g/dl (32-36) RDW 15.9 % H % (11.5-14.5) Plt Count 74 k/mm3 L D k/mm3 (150-375) MPV 11.2 fl H fl (7.4-10.4) Immature Gran % (Auto) Not Reportable Neut % (Auto) Not Reportable Lymph % (Auto) Not Reportable [place] % (Auto) Not Reportable Eos % (Auto) Not Reportable Baso % (Auto) Not Reportable Lymph # (Auto) Not Reportable [place] # (Auto) Not Reportable Eos # (Auto) Not Reportable Baso # (Auto) Not Reportable Abs Immat Gran
--- NOTE | 2022-04-27 14:49 | PM.IMPN ---
Progress Note: A&P Assessment and Plan (1) MRSA bacteremia: Code(s): R78.81 - Bacteremia; B95.62 - Methicillin resistant Staphylococcus aureus infection as the cause of diseases classified elsewhere Status: Acute (2) Acute stroke due to ischemia: Code(s): I63.9 - Cerebral infarction, unspecified Status: Acute (3) Acute kidney injury: Code(s): N17.9 - Acute kidney failure, unspecified Status: Acute (4) Generalized weakness: Code(s): R53.1 - Weakness Status: Acute (5) Sepsis: Code(s): A41.9 - Sepsis, unspecified organism Status: Acute (6) Altered mental status: Qualifiers: Altered mental status type: unspecified Qualified Code(s): R41.82 - Altered mental status, unspecified Code(s): R41.82 - Altered mental status, unspecified Status: Acute Plan 76-year-old male with coronary artery disease status post 2 vessel bypass, valvular heart disease status post aortic valve replacement 2015,presented with weakness, found to have altered mental status. 1)Acute encephalopathy: CT head is negative.? Likely due to underlying sepsis.? MRI brain revealed multiple acute infarcts scattered likely septic? Emboli. ? ? ? Appreciate Neurology input ?2) Severe sepsis with persistent MRSA bacteremia Scheduled for SONIA today Chest x-ray and CT abdomen is negative.? Very concerning for Endocarditis given h/o valve replacement in 2016 c/w vanc+Gentamicin Repeat Blood cultures every 24 hours 3)Thrombocytopenia likely due to sepsis continues to worsen. Consulted hematology.? s/p 2 units of platelet yesterday 4)CHINMAY Monitor Kidney function Recheck BMP in AM Supplement potassium ?5)DVT prophylaxis SCD.? Monitor Platelet count 6)Code status DNR/DNI 7)Dispo: pending improvement, critically sick Time Spent With Patient Time with patient: 15 - 25 minutes Subjective Date/time seen: 04/27/22 14:49 Interval history: no fever since last night Confused, Review of Systems Review of Systems: ROS unobtainable: Yes unobtainable due to medical condition and unobtainable due to mental status Exam Narrative: General:???ill-appearing gentleman lying in bed? ? Somnolent HEENT:??Normocephalic, atraumatic. Neck:?Supple.? Nontender Respiratory:?? coarse breath sounds bilaterally, no wheezes Cardiovascular:???intermittently tachycardic but? better rate, S1-S2.?Soft murmur at the upper sternal border.? Well-healed sternotomy. Gastrointestinal:??Soft nontender Skin:??Warm and dry.? Extremities are warm and perfused.? Bilateral great toe with healed ulcers no drainage noted Extremities:??No cyanosis, clubbing, or edema. Radial and pedal pulses intact.? Neurological:??Somnolent, not following commands Objective Data Vital Signs Vital Signs: Vital Signs - 24 hr 04/26/22 14:56 04/26/22 16:00 04/26/22 17:00 Temperature 101.5 F H 101.5 F H Pulse Rate 104 H 92 Respiratory Rate 20 Blood Pressure 142/74 H Pulse Oximetry 98 Oxygen Delivery 04/26/22 16:00 04/26/22 18:00 04/26/22 18:20 Temperature 101.5 F H Pulse Rate 85 105 H Respiratory Rate Blood Pressure Pulse Oximetry Oxygen Delivery 04/26/22 19:53 04/26/22 20:38 04/26/22 20:41 Temperature 97.6 F 98.7 F Pulse Rate 64 107 H 112 H Respiratory Rate 18 22 H Blood Pressure 181/111 H 140/78 Pulse Oximetry 96 100 Oxygen Delivery 04/26/22 20:53 04/26/22 20:55 04/26/22 21:35 Temperature 99 F 99 F 99.2 F Pulse Rate 92 101 H 109 H Respiratory Rate 22 H 22 H 22 H Blood Pressure 152/77 H 142/65 H 148/82 H Pulse Oximetry 100 100 100 Oxygen Delivery 04/26/22 21:51 04/26/22 22:02 04/26/22 20:00 Temperature 98.8 F 99 F Pulse Rate 104 H 111 H 108 H Respiratory Rate 22 H 22 H Blood Pressure 155/75 H 144/84 H Pulse Oximetry 100 100 Oxygen Delivery 04/26/22 22:00 04/27/22 00:00 04/27/22 00:00 Temperature 99.2 F Pulse Rate 110 H 1
[2022-04-27 17:21] LABS: Glucose Point of Care 116 mg/dl (65-105)
--- NOTE | 2022-04-27 17:26 | WPDTEECHO ---
SONIA TransEsophageal Echocardiogram Date of procedure: 04/27/22 Procedure Type: Date of Procedure: 04/27/2022 Brief History Of Present Illness: Patient is referred for SONIA for evaluation of infective endocarditis in the setting of MRSA bacteremia. Procedure In Detail: After verbal and written informed consent was obtained from the patient's , the patient risks, benefits, and alternatives explained in detail. The patient's agreed to proceed with the plan of care as outlined above.?The patient was evaluated at bedside.?The posterior oropharynx, neck, and jaw angle all within normal limits on examination. Lungs were clear to auscultation. Sedation done by Anesthesia team. SONIA performed in the GI lab. The patient was then placed in the appropriate 30 to 45 degree angle supine position at a slight left lateral decubitus position.?Patient was monitored throughout the study with telemetry, oxygen saturation, end-tidal CO2 monitoring, blood pressure, heart rate, and respirations.? The posterior hypopharynx was then locally anesthetized using Hurricaine spray.? After local anesthetic of the posterior hypopharynx was achieved and the oral bite block placed, sedation was administered by the Anesthesia team.? After confirmation of adequate sedation, the transesophageal echocardiogram probe was advanced through the oral bite block into the posterior hypopharynx and into the esophagus easily and without complication.? Multiple, multiplanar echocardiographic images were obtained in multiple standard re- projections.? Pulsed wave, continuous-wave, and color-flow Doppler were utilized in conjunction with this study.? At the conclusion of the study, the transesophageal echocardiogram probe was removed easily and without complication.? The patient tolerated the procedure well without difficulty.? Patient was in sinus rhythm throughout the study. Moderate Sedation/Anesthesia administration: Sedation as per the Anesthesia team. Procedure start time: 14:30 Procedure end time: 15:08 FINDINGS: LEFT VENTRICLE: Normal left ventricular size. The left ventricular ejection fraction is estimated at 50-55%. RIGHT VENTRICLE:? Size within normal limits. LEFT ATRIUM: Normal size. RIGHT ATRIUM: Normal size. INTERATRIAL SEPTUM: ? Interatrial septum is anatomically normal without evidence of shunt with injection of agitated saline. MITRAL VALVE: Mitral valve leaflets appear to be normal. There are 2 small mobile vegetations on the atrial surface of the mitral valve. The largest of the two vegetations measures 0.7cm x 0.7cm. There is moderate mitral valve regurgitation. AORTIC VALVE: Bioprosthetic aortic valve in place. The aortic root at the aortomitral curtain appears thickened and has heterogeneous echogenicity concerning for inflammation/infection. There is a small mobile vegetation seen on the ventricular side of the aortic valve. The aorta side of the aortic valve has 2 vegetations. One of the vegetations measures up to 3cm in length. The second vegetation measures approximately 1.5cm x 1.2cm. No aortic regurgitation. TRICUSPID VALVE: No mobile elements identified. PULMONIC VALVE: Pulmonic valve was not well visualized. LEFT ATRIAL APPENDAGE: Anatomically normal structure with prominent pectinate muscles without thrombus or vegetation identified. ? PERICARDIUM: The pericardium was anatomically normal without significant pericardial effusion. ? AORTA: Deep transgastric views were not obtained. Midesophageal views of the aorta showed mild atherosclerotic disease. Complications: None This dictation may have been done utilizing a voice recognition system.? Attempts have been made to correct errors. However, there may be uncorrected grammatical, spelling, and recognition errors present.
--- NOTE | 2022-04-27 21:06 | ECG_ITS ---
Measurements Intervals [place] Rate: 100 P: 110 TN: 275 QRS: -62 QRSD: 161 T: 83 QT: 418 QTc: 541 Interpretive Statements SINUS TACHYCARDIA RIGHT BUNDLE BRANCH BLOCK LEFT ANTERIOR FASCICULAR BLOCK BORDERLINE ST-T WAVE ABNORMALITY- ANTEROLATERAL LEADS BASELINE WANDER- II, III, AVR, AVF, V6 ABNORMAL ECG COMPARED TO ECG 04/23/2022 02:10:44 NO SIGNIFICANT CHANGES Electronically Signed On 04-28-2022 6:32:29 [employer] HAND by Mathieu Soares D.O.
[2022-04-27 21:39] LABS: Alveolar/Arterial O2 Gradient 60.5 mmHg; Base Excess ABG -7.2 mEq/l (+/-2.0); Fractional Inspired Oxygen 21 %; HCO3 ABG 15.1 mEq/l (22.0-26.0); Oxygen Content ABG 16.3 %vol (16.0-22.0); Oxygen Saturation ABG 92.9 % (95.0-100.0); PO2 ABG 61.6 mmHg (80.0-100.0); PO2 FiO2 Ratio Arterial Blood 2.93 %; Total Hemoglobin 12.7 g/dL (12.0-18.0); pH ABG 7.434 (7.350-7.450)
[2022-04-27 21:42] LABS: Device ROOM AIR; Modified Allen's Test Pass; PCO2 ABG 23.1 mmHg (35.0-45.0); Site Drawn LEFT RADIAL
[2022-04-27 21:50] LABS: Immature Platelet Fraction Pct 11.3 % (0.9-11.2); Mean Corpuscular HGB Conc 32.4 g/dl (32-36); Mean Corpuscular Hemoglobin 26.8 pg (26-34); Mean Corpuscular Volume 82.8 fl (80-100); Platelet Count Result 57 k/mm3 (150-375); Red Blood Count 4.47 M/mm3 (4.6-6.20); Red Cell Distribution Width 16.4 % (11.5-14.5); White Blood Count 27.3 K/mm3 (4.5-10.0)
[2022-04-27 21:51] LABS: Anion Gap 8 mmol/L (8-16); Blood Urea Nitrogen 57 mg/dL (9-20); Calcium 7.7 mg/dL (8.4-10.2); Carbon Dioxide 16 mmol/L (22-30); Chloride 121 mmol/L (98-107); Estimated CRCL calculation 42 ml/min; Estimated Glomerular Filt Rate 39; Glucose 145 mg/dL (65-110); Sodium 145 mmol/L (137-145)
[2022-04-27] MEDS: FUROSEMIDE INJ 40 MG/4 ML VIAL 20 MG IV PUSH (22:10)
[2022-04-27 22:31] LABS: Band Neutrophils Percent 2 % (0-6); Lymphocytes Absolute Manual 0.81 K/mm3 (1.1-4.5); Monocytes Absolute Manual 0.54 K/mm3 (0.1-0.90); Monocytes Percent Manual 2 % (3-9); Neutrophils Absolute Manual 25.93 K/mm3 (1.3-6.7); Neutrophils Percent Manual 93 % (46-73); Platelet Estimate Decreased (Adequate); Total Cells Counted 100
[2022-04-27 22:32] LABS: Anisocytosis 1+ (NORMAL); Burr Cells 2+ (NORMAL); Ovalocytes 2+ (NORMAL); Schistocytes 1+ (NORMAL)
[2022-04-27 23:54] LABS: Glucose Point of Care 151 mg/dl (65-105)
[2022-04-28] VITALS: PULSE 111
[2022-04-28] MEDS: FUROSEMIDE INJ 40 MG/4 ML VIAL 20 MG IV PUSH (00:46)
[2022-04-28 01:35] VITALS: PULSE 121
[2022-04-28] MEDS: METOPROLOL TARTRATE INJ 5 MG/5 ML VIAL IV PUSH (01:35)
--- NOTE | 2022-04-28 02:43 | PC.NURSE ---
Addendum entered by Verónica Lindo RN 04/28/22 02:51: After slowly pushing his scheduled dose of IV Metoprolol over 2.5 minutes, patient began bradying down from 121 to 43, and down to 39 when compressions began and code was called. All responded. Family called, stated they want everything done possible. Continued coding patient. Original Note: Patient Decline. Noticed increase work of breathing upon initial assessment. Immediately spoke with Kaylene Ferreira to conduct full workup suspecting fluid overload with assessment changes. Orders to give 20 of lasix and stop fluid orders. Full workup showed ABG changes (pH 7.46, CO2 23, HCO3 15.1), no new orders. Chest xray showed tiny right aprical pneumothorax and small left pleural effusion. Surgery consulted. Dr. Oscar reviewed xray stating that the pneumo was under 5% and did not require immediate attention. No abnormal BMP labs, CBC showed an increased WBC of 27 and a decreased platelet count of 57, no new orders after MD communication. Orders to give another 20 of lasix after 90 minutes of only 150 mL of urine output after the first dose.
--- NOTE | 2022-04-28 03:44 | ED.CPR ---
HPI - CPR General Time Seen by Provider: 04/22/22 14:04 Related Data Home Medications Medication Instructions Recorded Confirmed oxycodone-acetaminophen 7.5 mg-325 1 tablet PO Q6H PRN neuropathy 07/24/20 04/22/22 mg tablet (Percocet) omeprazole 40 mg capsule,delayed 40 mg PO DAILY 12/01/21 04/22/22 release promethazine 25 mg tablet 25 mg PO Q6H PRN Nausea 12/01/21 04/22/22 Allergies Allergy/AdvReac Type Severity Reaction Status Date / Time No Known Allergies Allergy Verified 04/22/22 12:24 [facility] Past Medical History Medical History Coronary artery disease History of 2 vessel bypass at the time of aortic valve replacement in 2015 at [facility]. Iron deficiency anemia Started on iron in spring 2020. Etiology unclear, no workup has yet been pursued. Obstructive sleep apnea Patient states intolerance to CPAP. Peripheral neuropathy On oxycodone p.r.n. Type 2 diabetes mellitus No longer on medication after losing over 150 pounds. Surgical History Surgical History History of aortic valve replacement with bioprosthetic valve (11/2015) Performed at [facility]. History of coronary artery bypass graft x 2 (11/2015) Performed at [facility]. History of gastric bypass (2011) History of open heart surgery (~11/2015) History of repair of right rotator cuff Family History Family History Mother Acute myocardial infarction Father Cerebrovascular accident Grandparent Leukemia Social History Social History Social History: The patient is and lives with his in [place]. They have 3 grown daughters. He is retired from the [employer]. Smoked 1.5 packs of cigarettes per day for many years and quit about 30 years ago. He continues to chew tobacco. No alcohol or illicit substance abuse. Smoking status: Former smoker Smokeless tobacco user: chewing tobacco Alcohol intake: never Substance use: never Substance use type: does not use Lack of Transportation: No Lack of Food: Never True Current Housing: I Have Housing Concerned About Future Housing: No Difficulty Paying Gas/Electric Bills: No Difficulty Paying for Meds: No Currently Unemployed: No Education: Master's Degree or Higher Difficulty w/ Childcare or Family Care: No Spiritual care concerns: No Course Course Emergency Course: Called to the floor for CODE BLUE patient found to be in cardiac arrest history of endocarditis recently had a SONIA today. Family was initially called and did wish for everything to be done for the patient. Patient currently in PEA with CPR in progress. Patient subsequently was several rounds of CPR please see procedure note for intubation note as well as code sheet for full run the code sheet. patient remained in PEA for the majority of the code and did regain a pulse. Patient briefly held his pulse for several minutes and then a repeat code was called. At that time Dr. Davenport recontacted family and they did agree with ceasing CPR Vital Signs Vital signs: Vital Signs Temperature 101.4 F H 04/22/22 12:18 Pulse Rate 91 04/22/22 12:18 Respiratory Rate 18 04/22/22 12:18 Blood Pressure 153/72 H 04/22/22 12:18 Pulse Oximetry 100 04/22/22 12:18 Oxygen Delivery Room Air 04/22/22 12:18 Temperature 98.3 F 04/27/22 23:57 Pulse Rate 121 H 04/28/22 01:35 Respiratory Rate 40 H 04/27/22 23:57 Blood Pressure 104/77 04/27/22 23:57 Pulse Oximetry 98 04/27/22 23:57 Oxygen Delivery Room Air 04/27/22 15:34 Oxygen Flow Rate 2 04/27/22 15:11 Procedures Intubation Intubation #1: sedative: none Laryngoscope: fiber optic video scope Tube Size (cm): 7.5 Method of Intubation: orotracheal N
[2022-04-29 11:09] LABS: ADAMTS-13 Activity 0.36 IU/mL (0.68-1.63)
--- NOTE | 2022-05-06 19:18 | PM.DS ---
DS: Admitting Diagnosis Discharge Date 04/28/22 Admitting Diagnosis Acute Encephalopathy DS: Discharge Diagnosis Discharge Diagnosis (1) MRSA bacteremia: Code(s): R78.81 - Bacteremia; B95.62 - Methicillin resistant Staphylococcus aureus infection as the cause of diseases classified elsewhere Status: Acute (2) Cardiopulmonary arrest: Code(s): I46.9 - Cardiac arrest, cause unspecified Status: Acute (3) Acute stroke due to ischemia: Code(s): I63.9 - Cerebral infarction, unspecified Status: Acute (4) Generalized weakness: Code(s): R53.1 - Weakness Status: Acute (5) Acute kidney injury: Code(s): N17.9 - Acute kidney failure, unspecified Status: Acute DS: Summary Hospital Course Reason for hospitalization: Acute Encephalopathy Hospital Course: 76-year-old male with coronary artery disease status post 2 vessel bypass, valvular heart disease status post aortic valve replacement 2015,presented with weakness, found to have altered mental status. 1)Acute encephalopathy: ?CT head is negative.?? Likely due to underlying sepsis.? ?MRI brain revealed multiple acute infarcts scattered likely septic? Emboli. ? ? ? was seen by Neurology ?2) Severe sepsis with persistent MRSA bacteremia/Endocarditis s/p SONIA which showed vegetations ?Chest x-ray and CT abdomen is negative.? 3)Thrombocytopenia likely due to sepsis continues to worsen. Consulted hematology.? s/p 2 units of platelet yesterday 4)CHINMAY Also had CHINMAY upon presentation Patient had cardiac arrest on 04/28/22. Patient was DNR/DNI. on 04/28/22 Time Spent with Patient Time attestation: Total time spent providing and/or coordinating discharge services: Exam Narrative: I was not there as he passes away during pathology secretary DS: Data Data Completed and Pending Completed studies during hospitalization: Pending at discharge 04/25/22 18:12 Surgical [PTH] Routine Labs on day of discharge: Labs from last 24 hours 04/25/22 21:00 [id number] Activity Intrp Not Reportable Discharge Plan Discharge Attending physician on discharge: Laura Mitchell Consulting providers: Merry Frye ; Markie Bedolla ; Asher Maldonado ; Geoff Galeana ; Nabil Ramirez ; Basilia Mcfarland ; Jerrell Lenz ; Mathieu Soares ; Kristian Montana ; Kamlesh Tyler V. ; Gaurang Carcamo ; Laura Mitchell ; Lobito Mendenhall Discharging Clinician: Laura Mitchell Patient Disposition: Discharge Medications: Discontinued omeprazole 40 mg capsule,delayed release(DR/EC) 40 mg PO DAILY promethazine 25 mg tablet 25 mg PO Q6H PRN (Reason: Nausea) oxycodone-acetaminophen [Percocet] 7.5-325 mg tablet 1 tablet PO Q6H PRN (Reason: neuropathy) Date of admission: 04/25/22 09:34 Primary Care Provider: Fran,Juan Pablo Sewell Admitting Provider: Socorro Evans Attending physician on admission: Antoinette Marte M.A. Condition: [facility] Discharge Hospital Discharge: [id number] Hosp D/C 30 Min
--- NOTE | 2022-05-06 20:02 | PM.DDS ---
Discharge Summary Date and Time Date of : 04/28/22 Time of : 02:21 Provider Pronounced By: Dr. Marte Probable Cause of Probable Cause of : Cardiopulmonary Arrest Endocarditi Summary Hospital Course: 76-year-old male with coronary artery disease status post 2 vessel bypass, valvular heart disease status post aortic valve replacement 2015,presented with weakness, found to have altered mental status.Found to have bacteremia with endocarditis. Had cardiac arrest, was DNR/DNI. on 04/28/22. Additional Data Confirmation of as documented by pronouncing clinician: Pupillary Reflex, Palpable Pulses, Response to Stimuli, Heart Tones and Breath Sounds Name of Provider Notified: Dr. Marte Time Provider Notified: 02:21 Provider Requests Autopsy: No Family Requests Autopsy: No [employer] Installer Notified: Yes Date [facility] Notified of : 04/28/22 Time [facility] Notified of : 02:44
== END 2022-04-28 02:21 | disposition expired | DRG 871 ==
LOC: ANHED 17:51 → ANH3MED 19:46 → ANHIMU 04-24 22:04
PROVIDERS: Emergency Medicine; Internal Medicine; Internal Medicine Hematology & Oncology; Nurse Practitioner; Physician Assistant; Admitting Provider Student in an Organized Health Care Education/Training Program; Emergency Provider Family Medicine; PCP Family Medicine; Visit Provider Internal Medicine
PROC: B24BZZ4 Ultrasonography of Heart with Aorta, Transesophageal (ICD-10-PCS; CPT 93312; principal; 2022-04-27 14:30)
DX: A41.02 Sepsis due to Methicillin resistant Staphylococcus aureus (principal); G93.41 Metabolic encephalopathy; I63.443 Cerebral infarction due to embolism of bilateral cerebellar arteries; N17.9 Acute kidney failure, unspecified; I76 Septic arterial embolism; I35.8 Other nonrheumatic aortic valve disorders; R65.20 Severe sepsis without septic shock; I25.10 Atherosclerotic heart disease of native coronary artery without angina pectoris; G47.33 Obstructive sleep apnea (adult) (pediatric); E11.42 Type 2 diabetes mellitus with diabetic polyneuropathy; D69.6 Thrombocytopenia, unspecified; Z66 Do not resuscitate; Z20.822 Contact with and (suspected) exposure to COVID-19; Z95.2 Presence of prosthetic heart valve; Z95.1 Presence of aortocoronary bypass graft; Z82.49 Family history of ischemic heart disease and other diseases of the circulatory system
CPT/HCPCS: 31500; 36415; 36430; 36600; 70450; 70551; 71045; 72148; 73630; 74177; 76705; 80048; 80053; 80076; 80170; 80202; 81001; 82140; 82550; 82607; 82805; 82948; 83605; 83735; 84145; 84443; 85025; 85049; 85055; 85380; 85384; 85397; 85610; 85652; 85730; 86140; 86900; 86901; 87040; 87077; 87086; 87147; 87186; 87636; 92950; 93005; 93306; 93312; 93320; 93325; 96361; 96365; 96366; 96367; 96375; 96376; 97162; 99285; A9270; C9113; G0378; J0131; J0171; J0696; J1459; J1580; J1940; J2060; J2543; J2704; J3370; J3480; J7030; J7040; J7050; P9034; Q9967